=== PATIENT | male | born 1965 | race African-American/Black ===

== ENCOUNTER 2017-12-10 11:05 | Inpatient (IN) | payer SELFPAY ==
[2017-12-10] MEDS ORDERED: ALBUTEROL SULFATE 0.083% NEB 2.5 MG/3 ML AMPUL NEB ONE (11:30)
[2017-12-10] MEDS ORDERED: IPRATROPIUM/ALBUTEROL 0.5-2.5 MG/3 ML AMPUL NEB ONE (11:30)
[2017-12-10] MEDS ORDERED: METHYLPREDNISOLONE INJ 125 MG/2 ML SDV IV ONE (11:31)
--- NOTE | 2017-12-10 11:32 | ER Document Report ---
ED Medical Screen (RME) - General Chief Complaint: Breathing Difficulty Stated Complaint: DIFFICULTY BREATHING Time Seen by Provider: 12/10/17 11:23 Notes: 52-year-old male complains of shortness of breath and hemoptysis for the past 2 days. Patient has been traveling on a bus from [place] and had hernia surgery one week ago. No history of DVT or PE, no history of asthma or COPD. TRAVEL OUTSIDE OF THE [place] IN LAST 30 DAYS: No - Related Data Allergies/Adverse Reactions: meperidine [From Demerol] Allergy (Verified 12/10/17 11:06) morphine Allergy (Verified 12/10/17 11:06) Past Medical History - General Information source: Patient - Social History Cigarette use (# per day): Yes Review of Systems - Review of Systems Respiratory: See HPI Physical Exam - Vital signs Vitals: Temp Pulse Resp BP Pulse Ox 98.2 F 102 H 22 H 145/91 H 92 12/10/17 11:14 12/10/17 11:14 12/10/17 11:14 12/10/17 11:14 12/10/17 11:14 - Notes Notes: Appear short of breath, diffuse expiratory wheezing, appears uncomfortable, tachypneic. No cyanosis. Course - Vital Signs Vital signs: Temp Pulse Resp BP Pulse Ox 98.2 F 102 H 22 H 145/91 H 92 12/10/17 11:14 12/10/17 11:14 12/10/17 11:14 12/10/17 11:14 12/10/17 11:14
[2017-12-10 11:54] LABS: INTERNATIONAL RATION (INR) 1.07; PARTIAL THROMBOPLASTIN TIME 20.1 SEC (23.5-35.8); PROTHROMBIN TIME 14.5 SEC (11.4-15.4)
[2017-12-10] MEDS ORDERED: NORMAL SALINE 1000 ML 1,000 ML IV ONE (11:58)
[2017-12-10] MEDS ORDERED: CEFEPIME 2 GM/D5W RTU 2 GM/50 ML RTUPB IV SCH (11:58)
[2017-12-10] MEDS ORDERED: VANCOMYCIN HCL INJ 1000 MG VIAL IV ONE (11:59)
[2017-12-10] MEDS ORDERED: AZITHROMYCIN INJ 500 MG VIAL IV ONE (11:59)
--- NOTE | 2017-12-10 12:18 | ER Document Report ---
ED General - General Chief Complaint: Breathing Difficulty Stated Complaint: DIFFICULTY BREATHING Time Seen by Provider: 12/10/17 11:29 TRAVEL OUTSIDE OF THE [place] IN LAST 30 DAYS: No - HPI Notes: 52-year-old male who presents with dyspnea and hemoptysis. No history somewhat limited as the patient is in significant distress. He just within the last 24 hours arrived by bus from [place], has a history of hernia repair in the inguinal region approximately 2 weeks ago. He describes several days of increasingly severe dyspnea cough and hemoptysis, markedly worse today. Denies any personal or family history of venous thromboembolic disease, the use of anticoagulants. He is not been incarcerated in the last 6 months, no travel outside the country no history of TB. No unplanned weight loss. He has had some equivocal sweats and fever up, nothing measured. No associated chest pain. No other modifying factors, no other associated symptoms, no other provocative or palliative factors. Gradual onset. - Related Data Allergies/Adverse Reactions: meperidine [From Demerol] Allergy (Verified 12/10/17 11:06) morphine Allergy (Verified 12/10/17 11:06) Past Medical History - General Information source: Patient - Social History Smoking Status: Never Smoker Cigarette use (# per day): Yes Chew tobacco use (# tins/day): No Frequency of alcohol use: None Drug Abuse: None Family History: Reviewed & Not Pertinent Patient has suicidal ideation: No Patient has homicidal ideation: No - Medical History Notes: Includes recent hernia repair - Past Medical History Cardiac Medical History: Reports: Hx Hypertension Renal/ Medical History: Denies: Hx Peritoneal Dialysis Past Surgical History: Reports: Hx Abdominal Surgery - Hernia Repair Review of Systems - Review of Systems Notes: Review of systems as in the history of present illness, otherwise negative x 10 systems. Physical Exam - Vital signs Vitals: Temp Pulse Resp BP Pulse Ox 98.2 F 102 H 22 H 145/91 H 92 12/10/17 11:14 12/10/17 11:14 12/10/17 11:14 12/10/17 11:14 12/10/17 11:14 - Notes Notes: General: Well developed . Severe respiratory distress. HEENT: Normocephalic, atraumatic. Pupils equal round reactive to light. No JVD. Chest: No trauma. Respiratory: G for air exchange, and expiratory wheezing, some scattered rhonchi. Cardiac: Regular rhythm. No murmurs or gallops. Abdomen: Soft, benign. Nondistended. Nontender. Back: No asymmetry or gross abnormality. Motor: Grossly normal power and tone. Neurologic: Alert, nonfocal. Cranial nerves II-12 are intact. Sensation intact. Vascular: Well perfused. Normal peripheral pulses. Skin: No petechiae or purpura. Course - Re-evaluation Re-evalutation: 12/10/17 12:18 Ill-appearing male with the after mentioned symptoms, differential diagnosis includes malignancy/mass, pneumonia, pulmonary embolism. Plan to proceed with aggressive laboratory evaluation, labs, x-ray, likely CT imaging, reassess. 12/10/17 15:05 There were significant delays in a ability to require blood. Patient had substantial worsening during his ED course, was ultimately placed on BiPAP with transient improvement. However, he again experienced pronounced increased work of breathing. In light of this, he was intubated as described below. Patient's x-ray shows marked airspace disease predominantly on the right. Some mild cardiomegaly. Labs are reviewed and available labs show significant leukocytosis. Lactate is normal. Troponin is elevated somewhat, however, suspect this is secondary to increased work of breathing, multiorgan dysfunction syndrome and demand ischemia. Patient is covered with broad-spectrum antibiotics given his healthcare associated pneumonia risk. Rectal temp is pending. Patient is stabilized on the vent, is requiring high FiO2 and PEEP. Tube is secured at 24 but readjusted after was noted to be low. Good tube placement is noted on follow-up x-ray. CTA shows no evidence of pulmonary embolism. He is admitted to the hospital service for continued evaluation and management. Procedure note: This is an emergency procedure, informed consent is not obtained. Underwent rapid sequence intubation using etomidate and rocuronium. An 8-0 endotracheal tube was placed on the first attempt without difficulty. Placement verified with capnohraphy. Postprocedural x-ray shows the tube to be low, subsequently withdrawn and repeat x-ray shows good placement. No complications. 12 Lead ECG Analysis A 12 lead ECG is obtained and shows a sinus rhythm, normal QRS, normal QTC. There are nonspecific ST-T changes, no evidence of acute ischemic changes. Critical Care Note Greater than 35 minutes of critical care time was spent with this patient. This includes serial evaluation of the patient as well as labs, radiographs and EKGs; discussion of the case with consultants and admitting physician. This does not include time spent performing procedures. - Vital Signs Vital signs: Temp Pulse Resp BP Pulse Ox 100.2 F 102 H 14 136/102 H 97 12/10/17 13:51 12/10/17 11:14 12/10/17 13:51 12/10/17 13:51 12/10/17 14:53 - Laboratory Result Diagrams: 12/10/17 11:38 12/10/17 13:00 Laboratory results interpreted by me: 12/10/17 12/10/17 12/10/17 11:38 11:38 13:00 WBC 20.7 H Hgb 10.9 L Hct 34.4 L MCV 72 L MCH 22.6 L MCHC 31.5 L RDW 16.4 H Seg Neutrophils % 79.3 H Seg Neuts % (Manual) 83 H Band Neutrophils % 2 L Lymphocytes % 12.4 L Lymphocytes % (Manual) 12 L Monocytes % (Manual) 2 L Absolute Neutrophils 16.4 H Abs Neuts (Manual) 16.4 H Absolute Basophils 0.3 H APTT 20.1 L Glucose 134 H Calcium 8.3 L Discharge - Discharge Clinical Impression: Respiratory failure Qualifiers: Chronicity: acute Respiratory failure complication: hypoxia Qualified Code(s): J96.01 - Acute respiratory failure with hypoxia Condition: Critical Disposition: ADMITTED INPATIENT Admitting Provider: Hospitalist Unit Admitted: ICU
[2017-12-10 12:47] LABS: ABSOLUTE LYMPHOCYTES# (MANUAL) 2.3 10^3/uL (0.5-4.7); ABSOLUTE MONOCYTES # (MANUAL) 0.4 10^3/uL (0.1-1.4); ABSOLUTE NEUTROPHILS# (MANUAL) 16.4 10^3/uL (1.7-8.2); BAND NEUTROPHILS % (MANUAL) 2 % (3-5); BASOPHILS % (MANUAL) 1 % (0-2); EOSINOPHILS % (MANUAL) 0 % (0-6); HYPERSEGMENTED NEUTROPHILS PRESENT; LYMPHOCYTES % (MANUAL) 12 % (13-45); MONOCYTES % (MANUAL) 2 % (3-13); NUCLEATED RED BLOOD CELLS 2 /100 WBC (0); PLATELET CLUMPS PRESENT; PLATELET COMMENT ADEQUATE; PLATELET LARGE PRESENT; SEGMENTED NEUTROPHILS % (MAN) 83 % (42-78); TOTAL CELLS COUNTED 100; TOXIC VACUOLATION PRESENT
[2017-12-10 12:51] LABS: ANISOCYTOSIS 1+; BURR CELLS SLIGHT; HYPOCHROMASIA 1+; POIKILOCYTOSIS SLIGHT; POLYCHROMASIA SLIGHT; SCHISTOCYTES SLIGHT
--- NOTE | 2017-12-10 12:54 | RADIOLOGY REPORT (SQ) ---
EXAM DESCRIPTION: CHEST SINGLE VIEW COMPLETED DATE/TIME: 12/10/2017 11:52 am REASON FOR STUDY: DYSPNEA AND HEMOP COMPARISON: None. EXAM PARAMETERS: NUMBER OF VIEWS: One view. TECHNIQUE: Single frontal radiographic view of the chest acquired. RADIATION DOSE: NA LIMITATIONS: None. FINDINGS: LUNGS AND PLEURA: Bilateral perihilar airspace type infiltrates, right greater than left. The findings are compatible with pulmonary edema, pulmonary hemorrhage, or pneumonia. MEDIASTINUM AND HILAR STRUCTURES: No masses. Contour normal. HEART AND VASCULAR STRUCTURES: Cardiomegaly. BONES: Degenerative changes AC joints. . HARDWARE: None in the chest. OTHER: Chest leads in place. IMPRESSION: Cardiomegaly with bilateral perihilar airspace type infiltrates. Pulmonary edema, pneum onia or pulmonary hemorrhage are considerations. TECHNICAL DOCUMENTATION: JOB ID: [id number] 2010 [employer]- All Rights Reserved Reading location - IP/workstation name: [email or web address]
[2017-12-10 13:02] LABS: ABSOLUTE BASOPHILS # (AUTO) 0.3 10^3/uL (0.0-0.2); ABSOLUTE EOSINOPHILS # (AUTO) 0.1 10^3/uL (0.0-0.6); ABSOLUTE LYMPHOCYTES (AUTO) 2.6 10^3/uL (0.5-4.7); ABSOLUTE MONOCYTES (AUTO) 1.3 10^3/uL (0.1-1.4); ABSOLUTE NEUT (AUTO) 16.4 10^3/uL (1.7-8.2); BASOPHILS % (AUTO) 1.4 % (0-2); EOSINOPHILS % (AUTO) 0.5 % (0-6); HEMATOCRIT 34.4 % (37.9-51.0); HEMOGLOBIN 10.9 g/dL (13.5-17.0); LYMPHOCYTES % (AUTO) 12.4 % (13-45); MEAN CORPUSCULAR HEMOGLOBIN 22.6 pg (27.0-33.4); MEAN CORPUSCULAR HGB CONC 31.5 g/dL (32.0-36.0); MEAN CORPUSCULAR VOLUME 72 fl (80-97); MONOCYTES % (AUTO) 6.4 % (3-13); PLATELET COUNT 294 10^3/uL (150-450); RED CELL DISTRIBUTION WIDTH 16.4 % (11.5-14.0); SEGMENTED NEUTROPHILS % (AUTO) 79.3 % (42-78); TOTAL CELLS COUNTED % (AUTO) 100 %; WHITE BLOOD COUNT 20.7 10^3/uL (4.0-10.5)
[2017-12-10] MEDS ORDERED: ETOMIDATE INJ/PF 20 MG/10 ML SDV IV ONE ×2 (13:07→13:08)
[2017-12-10] MEDS ORDERED: PROPOFOL 1,000 MG/100 ML INFUS..BTL IV PRN (13:08)
[2017-12-10] MEDS ORDERED: PROPOFOL 1,000 MG/100 ML INFUS..BTL IV ONE (13:08)
[2017-12-10] MEDS ORDERED: ROCURONIUM BROMIDE INJ 50 MG/5 ML VIAL IV ONE ×2 (13:08→15:09)
[2017-12-10] MEDS ORDERED: RINGERS SOLUTION,LACTATED 1,000 ML IV PRN (13:26)
[2017-12-10 13:31] LABS: ANION GAP 11 (5-19); BLOOD UREA NITROGEN 13 mg/dL (7-20); CALCIUM 8.3 mg/dL (8.4-10.2); CARBON DIOXIDE 23 mmol/L (22-30); CHLORIDE 106 mmol/L (98-107); GLUCOSE 134 mg/dL (75-110); POTASSIUM 3.7 mmol/L (3.6-5.0); SODIUM 140.3 mmol/L (137-145)
--- NOTE | 2017-12-10 14:47 | RADIOLOGY REPORT (SQ) ---
EXAM DESCRIPTION: CHEST SINGLE VIEW COMPLETED DATE/TIME: 12/10/2017 1:56 pm REASON FOR STUDY: Post ROMULO COMPARISON: None. EXAM PARAMETERS: NUMBER OF VIEWS: One view. TECHNIQUE: Single frontal radiographic view of the chest acquired. RADIATION DOSE: NA LIMITATIONS: None. FINDINGS: LUNGS AND PLEURA: Bilateral pulmonary perihilarairspace infiltrates, right greater left no lupe. MEDIASTINUM AND HILAR STRUCTURES: No masses. Contour normal. HEART AND VASCULAR STRUCTURES: The heart is borderline enlarged. BONES: No acute findings. HARDWARE: Endotracheal tube above the sandra. NG tube overlying stomach. OTHER: No other significant finding. IMPRESSION: Cardiomegaly. No significant change in perihilar infiltrates right greater than left. ET tube above sandra. NG tube overlying stomach. TECHNICAL DOCUMENTATION: JOB ID: [id number] [id number] 2010 [employer] All Rights Reserved Reading location - IP/workstation name: [email or web address]
--- NOTE | 2017-12-10 15:05 | RADIOLOGY REPORT (SQ) ---
EXAM DESCRIPTION: CTA CHEST COMPLETED DATE/TIME: 12/10/2017 2:33 pm REASON FOR STUDY: hemoptysis, recent travel COMPARISON: None. TECHNIQUE: CT scan of the chest performed using helical scanning technique with dynamic intravenous contrast injection. Images reviewed with lung, soft tissue and bone windows. Reconstructed coronal and sagittal MPR images reviewed. Additional 3 dimensional post-processing performed to develop Maximal Intensity Projection images (MA P). All images stored on PACS. All CT scanners at this facility use dose modulation, iterative reconstruction, and/or weight based d osing when appropriate to reduce radiation dose to as low as reasonably achievable (ALARA). [facility]: Dose Right [facility]: CareDose [facility]: Dose Right [facility]: Teradose 4D [facility]: [employer] CONTRAST TYPE AND DOSE: contrast/concentration: Isovue 350.00 mg/ml; Total Contrast Delivered: 149.0 ml; Total Saline Delivered: 182.0 ml Contrast bolus optimized for the pulmonary arteries. Not diagnostic for the aorta. RENAL FUNCTION: Creatinine: 0.55 RADIATION DOSE: CT Rad equipment meets quality standard of care and radiation dose reduction techniq ues were employed. CTDIvol: 8.3 - 66.1 mGy. DLP: 1873 mGy-cm. . LIMITATIONS: None. FINDINGS: LUNGS AND PLEURA: Prominent airspace type consolidation noted in the perihilar regions ,gr eatest on the right. Small effusions noted right greater than left. Bullous disease in lung apices. AORTA AND GREAT VESSELS: No aneurysm. Contrast bolus not optimized for the aorta. HEART: No pericardial effusion. No significant coronary artery calcifications. The heart is borderli ne enlarged. PULMONARY ARTERIES: No emboli visualized in the main pulmonary arteries or the segmental branches. HILAR AND MEDIASTINAL STRUCTURES: Small nonenlarged right paratracheal and pretracheal nodes. HARDWARE: Endotracheal tube above sandra. Feeding tube passing to stomach. UPPER ABDOMEN: Cortical cyst upper pole left kidney. Tiny cortical cyst lower pole right kidney. NG tube within stomach. THYROID AND OTHER SOFT TISSUES: No masses. No adenopathy. BONES: No acute or significant finding. 3D MIPS: Confirm above findings. OTHER: Soft tissue attenuation suggests soft tissue edema. IMPRESSION: 1.There are diffuse bilateral pulmonary airspace infiltrates and perihilar regions. Sma ll effusions bilaterally. The findings can be seen with pulmonary edema, pneumonia, ARDS. Findings consistent with soft tissue anasarca. 2. Cortical cysts of the kidneys . COMMENT: Quality ID # [id number]: Final reports with documentation of one or more dose reduction techniques (e.g., Automated exposure control, adjustment of the mA and/or kV according to patient size, use of iterative reconstruction technique) TECHNICAL DOCUMENTATION: JOB ID: [id number] SC-[id number] 2010 [employer]- All Rights Reserved Reading location - IP/workstation name: [email or web address]
[2017-12-10 15:08] LABS: ARTERIAL BLOOD BASE EXCESS -3.5 mmol/L; ARTERIAL BLOOD FIO2 80%; ARTERIAL BLOOD HCO3 24.5 mmol/L (20-26); ARTERIAL BLOOD O2 SATURATION 95.5 % (94-98); ARTERIAL BLOOD PCO2 59.8 mmHg (35-45); ARTERIAL BLOOD PH 7.23 (7.35-7.45); ARTERIAL BLOOD PO2 92.3 mmHg (80-100); ARTERIAL BLOOD TOTAL CO2 26.4 mmol/L (23-27)
[2017-12-10] MEDS ORDERED: VANCOMYCIN HCL 0 MG in DEXTROSE 5%-WATER 250 ML IV NR (15:15)
--- NOTE | 2017-12-10 15:37 | PDOC H&P ---
History of Present Illness Admission Date/PCP: 12/10/17 14:06 Patient complains of: Shortness of breath History of Present Illness: SUKUMAR PAZ is a 52 year old male who is currently intubated and sedated in the emergency room and no family at the bedside. All the history was obtained from the medical records and the ER personnel. Apparently he came here on the bus to visit family. He is from [place]. Apparently he developed shortness of breath and came to the emergency room for evaluation. The history that I know of and has history of smoking as he had a cigarette box on him and history of hypertension documented emergency room physician note. Past Medical History Cardiac Medical History: Reports: Hypertension Past Surgical History Past Surgical History: Reports: Herniorrhaphy Social History Smoking Status: Current Every Day Smoker Family History Family History: Other - could not obtained Parental Family History Reviewed: No - Patient is intubated Children Family History Reviewed: No Sibling(s) Family History Reviewed.: No Medication/Allergy Home Medications: Unobtainable [Unobtainable] 12/10/17 Allergies/Adverse Reactions: meperidine [From Demerol] Allergy (Verified 12/10/17 11:06) morphine Allergy (Verified 12/10/17 11:06) Review of Systems ROS unobtainable: Due to endotracheal tube Physical Exam Vital Signs: Temp Pulse Resp BP Pulse Ox 100.2 F 102 H 14 136/102 H 97 12/10/17 13:51 12/10/17 11:14 12/10/17 13:51 12/10/17 13:51 12/10/17 14:53 General appearance: PRESENT: other - Sedated intubated Head exam: PRESENT: atraumatic, normocephalic Eye exam: PRESENT: PERRLA Ear exam: ABSENT: bleeding, drainage Neck exam: ABSENT: meningismus, thyromegaly, tracheal deviation Respiratory exam: PRESENT: rhonchi, other - Intubated Cardiovascular exam: PRESENT: tachycardia Pulses: PRESENT: normal dorsalis pedis pul GI/Abdominal exam: PRESENT: normal bowel sounds, soft. ABSENT: distended, guarding, mass, organolmegaly, rebound, tenderness Extremities exam: PRESENT: full ROM. ABSENT: calf tenderness, clubbing, pedal edema Neurological exam: PRESENT: other - Sedated Results Laboratory Results: 12/10/17 14:45 Carbonic Acid 1.80 H HCO3/H2CO3 Ratio 13:1 ABG pH 7.23 L ABG pCO2 59.8 H ABG pO2 92.3 ABG HCO3 24.5 ABG O2 Saturation 95.5 ABG Base Excess -3.5 FiO2 80% Impressions: Chest/Abdomen CTA 12/10/17 11:31 IMPRESSION: 1.There are diffuse bilateral pulmonary airspace infiltrates and perihilar regions. Small effusions bilaterally. The findings can be seen with pulmonary edema, pneumonia, ARDS. Findings consistent with soft tissue anasarca. 2. Cortical cysts of the kidneys . Chest X-Ray 12/10/17 13:27 IMPRESSION: Cardiomegaly. No significant change in perihilar infiltrates right greater than left. ET tube above sandra. NG tube overlying stomach. Assessment & Plan - Diagnosis (1) Respiratory failure Qualifiers: Chronicity: acute Respiratory failure complication: hypoxia Qualified Code(s): J96.01 - Acute respiratory failure with hypoxia Is this a current diagnosis for this admission?: Yes Plan: This is most likely due to severe large pneumonia Patient's intubated and on mechanical ventilation Titrate the vent to maximize ventilation and oxygenation Wean as tolerated (2) Pneumonia Is this a current diagnosis for this admission?: Yes Plan: Considering that the patient had hernia repair 2 weeks ago, we will be aggressive on antibiotics We will start on IV vancomycin, cefepime and Levaquin Follow blood cultures and sputum cultures (3) Hypertension Is this a current diagnosis for this admission?: Yes Plan: We will continue to monitor the patient's blood pressure and will intervene if needed (4) Smoking Is this a current diagnosis for this admission?: Yes - Time Critical Time spent with patient: 35 or more minutes
[2017-12-10] MEDS: PROPOFOL 1,000 MG/100 ML INFUS..BTL IV PRN ×3 (15:46→22:39)
[2017-12-10] MEDS: ENOXAPARIN SODIUM INJ 40 MG/0.4 ML DISP.SYRIN SUBCUT SCH (16:36)
[2017-12-10] MEDS: NORMAL SALINE 1000 ML 1,000 ML IV PRN (16:36)
[2017-12-10] MEDS: LEVOFLOXACIN 750 MG/D5W RTU 750 MG/150 ML RTUPB IV SCH (17:17)
[2017-12-10 17:22] LABS: ARTERIAL BLOOD BASE EXCESS -0.1 mmol/L; ARTERIAL BLOOD FIO2 75%; ARTERIAL BLOOD H2CO3 1.29 mmol/L (1.05-1.35); ARTERIAL BLOOD PCO2 42.7 mmHg (35-45); ARTERIAL BLOOD PH 7.39 (7.35-7.45); ARTERIAL BLOOD PO2 112.5 mmHg (80-100); ARTERIAL BLOOD TOTAL CO2 26.3 mmol/L (23-27)
[2017-12-10] MEDS ORDERED: LEVALBUTEROL HCL NEB 1.25 MG/3 ML AMPUL NEB PRN (17:58)
[2017-12-10 18:51] LABS: URINE AMPHETAMINES SCREEN NEGATIVE; URINE BARBITURATES SCREEN NEGATIVE; URINE BENZODIAZEPINES SCREEN NEGATIVE; URINE COCAINE SCREEN NEGATIVE; URINE MARIJUANA (THC) SCREEN NEGATIVE; URINE METHADONE SCREEN NEGATIVE; URINE PHENCYCLIDINE SCREEN NEGATIVE
[2017-12-10] MEDS ORDERED: MIDAZOLAM HCL 50 MG/100 ML RTUINJ IV PRN (19:09)
[2017-12-10] MEDS: IPRATROPIUM/ALBUTEROL 0.5-2.5 MG/3 ML AMPUL NEB SCH (20:24)
[2017-12-10] MEDS: FAMOTIDINE INJ/PF 20 MG/2 ML SDV IV SCH (22:07)
[2017-12-10] MEDS: VANCOMYCIN HCL 1,500 MG in DEXTROSE 5%-WATER 250 ML IV SCH (22:07)
[2017-12-10] MEDS: METHYLPREDNISOLONE INJ 40 MG/1 ML SDV IV SCH (22:07)
[2017-12-10] MEDS: CEFEPIME 2 GM/D5W RTU 2 GM/50 ML RTUPB IV SCH (22:16)
--- NOTE | 2017-12-10 23:41 | EKG REPORT ---
SEVERITY:- ABNORMAL ECG - SINUS TACHYCARDIA PROBABLE LEFT ATRIAL ABNORMALITY PROBABLE LVH WITH SECONDARY REPOL ABNRM : Confirmed by: Michela Kwon 10-Dec-2017 23:40:19
[2017-12-11] MEDS: IPRATROPIUM/ALBUTEROL 0.5-2.5 MG/3 ML AMPUL NEB SCH ×5 (01:29→20:09)
[2017-12-11] MEDS: PROPOFOL 1,000 MG/100 ML INFUS..BTL IV PRN ×3 (02:59→08:24)
[2017-12-11] MEDS: VANCOMYCIN HCL 1,500 MG in DEXTROSE 5%-WATER 250 ML IV SCH ×3 (05:38→21:42)
[2017-12-11 06:01] LABS: ARTERIAL BLOOD BASE EXCESS 1.7 mmol/L; ARTERIAL BLOOD H2CO3 1.12 mmol/L (1.05-1.35); ARTERIAL BLOOD HCO3 25.6 mmol/L (20-26); ARTERIAL BLOOD O2 SATURATION 97.2 % (94-98); ARTERIAL BLOOD PCO2 37.3 mmHg (35-45); ARTERIAL BLOOD PH 7.46 (7.35-7.45); ARTERIAL BLOOD PO2 89.4 mmHg (80-100); ARTERIAL BLOOD TOTAL CO2 26.8 mmol/L (23-27)
[2017-12-11 06:04] LABS: ARTERIAL BLOOD FIO2 50%
[2017-12-11 06:13] LABS: ABSOLUTE MONOCYTES (AUTO) 0.4 10^3/uL (0.1-1.4); ABSOLUTE NEUT (AUTO) 12.9 10^3/uL (1.7-8.2); BASOPHILS % (AUTO) 0.3 % (0-2); HEMATOCRIT 27.5 % (37.9-51.0); MEAN CORPUSCULAR HEMOGLOBIN 22.5 pg (27.0-33.4); MEAN CORPUSCULAR VOLUME 70 fl (80-97); MONOCYTES % (AUTO) 2.5 % (3-13); PLATELET COUNT 216 10^3/uL (150-450); RED CELL DISTRIBUTION WIDTH 16.2 % (11.5-14.0); SEGMENTED NEUTROPHILS % (AUTO) 90.2 % (42-78); TOTAL CELLS COUNTED % (AUTO) 100 %; WHITE BLOOD COUNT 14.3 10^3/uL (4.0-10.5)
[2017-12-11 06:20] LABS: HEMOGLOBIN 8.8 g/dL (13.5-17.0)
[2017-12-11 06:27] LABS: ALANINE AMINOTRANSFERASE 51 U/L (21-72); ALBUMIN 2.5 g/dL (3.5-5.0); ALKALINE PHOSPHATASE 237 U/L (38-126); ANION GAP 9 (5-19); ASPARTATE AMINO TRANSFERASE 32 U/L (17-59); BILIRUBIN,DIRECT 0.3 mg/dL (0.0-0.4); BILIRUBIN,TOTAL 0.4 mg/dL (0.2-1.3); BLOOD UREA NITROGEN 12 mg/dL (7-20); CALCIUM 8.6 mg/dL (8.4-10.2); CARBON DIOXIDE 24 mmol/L (22-30); CHLORIDE 110 mmol/L (98-107); GLUCOSE 124 mg/dL (75-110); POTASSIUM 4.3 mmol/L (3.6-5.0); SODIUM 143.1 mmol/L (137-145); TOTAL PROTEIN 5.5 g/dL (6.3-8.2)
--- NOTE | 2017-12-11 07:15 | RADIOLOGY REPORT (SQ) ---
EXAM DESCRIPTION: CHEST SINGLE VIEW COMPLETED DATE/TIME: 12/11/2017 6:56 am REASON FOR STUDY: pneumonia COMPARISON: CT angio chest 12/10/2017 AP chest 12/10/2017 EXAM PARAMETERS: NUMBER OF VIEWS: One view. TECHNIQUE: Single frontal radiographic view of the chest acquired. RADIATION DOSE: NA LIMITATIONS: None. FINDINGS: LUNGS AND PLEURA: Partial clearing of the dense consolidation in the right lung and left p erihilar region compared to previous studies. No pneumothorax. No pleural effusions. MEDIASTINUM AND HILAR STRUCTURES: No masses. Contour normal. HEART AND VASCULAR STRUCTURES: Stable cardiomegaly BONES: No acute findings. HARDWARE: Endotracheal tube tip midtrachea. Nasogastric tube tip and side port in the stomach OTHER: No other significant finding. IMPRESSION: Partial clearing of the dense airspace disease in the right lung and left perihilar bi on compared to previous studies TECHNICAL DOCUMENTATION: JOB ID: [id number] [employer]- All Rights Reserved Reading location - IP/workstation name: [email or web address]
[2017-12-11] MEDS: IPRATROPIUM/ALBUTEROL 0.5-2.5 MG/3 ML AMPUL NEB PRN ×2 (07:37→07:38)
[2017-12-11] MEDS: NORMAL SALINE 1000 ML 1,000 ML IV PRN ×2 (08:26→23:08)
[2017-12-11] MEDS: ENOXAPARIN SODIUM INJ 40 MG/0.4 ML DISP.SYRIN SUBCUT SCH (09:53)
[2017-12-11] MEDS: METHYLPREDNISOLONE INJ 40 MG/1 ML SDV IV SCH ×2 (09:53→21:42)
[2017-12-11] MEDS: FAMOTIDINE INJ/PF 20 MG/2 ML SDV IV SCH ×2 (09:53→21:46)
[2017-12-11] MEDS: CEFEPIME 2 GM/D5W RTU 2 GM/50 ML RTUPB IV SCH ×2 (09:53→21:41)
--- NOTE | 2017-12-11 11:21 | PDOC CONSULTATION ---
Consultation Consult Date: 12/10/17 Attending physician:: TATE FLEMING Consult reason:: acute resp failure/pna History of Present Illness Admission Date/PCP: 12/10/17 14:06 History of Present Illness: SUKUMAR PAZ is a 52 year old male,Currently intubated in the ICU recently came to town on a bus trip from [place] became increasingly short of breath and his brother brought him to the emergency room he was deemed to be hypoxic and have a multi-lobar infiltrate. Past Medical History Cardiac Medical History: Reports: Hypertension Past Surgical History Past Surgical History: Reports: Herniorrhaphy Social History Information Source: [facility] Records Smoking Status: Current Every Day Smoker Drugs: Cocaine Family History Family History: Other - could not obtained Parental Family History Reviewed: No Children Family History Reviewed: No Sibling(s) Family History Reviewed.: No Medication/Allergy Home Medications: Unobtainable [Unobtainable] 12/10/17 Allergies/Adverse Reactions: meperidine [From Demerol] Allergy (Verified 12/10/17 11:06) morphine Allergy (Verified 12/10/17 11:06) Review of Systems ROS unobtainable: Due to endotracheal tube Physical Exam Vital Signs: Temp Pulse Resp BP Pulse Ox 97.7 F 82 18 104/72 100 12/11/17 07:58 12/11/17 07:58 12/11/17 07:58 12/11/17 07:58 12/11/17 07:58 Intake & Output 12/10/17 12/11/17 12/12/17 06:59 06:59 06:59 Intake Total 2810 292 Output Total 2600 100 Balance 210 192 Weight 81.4 kg General appearance: PRESENT: no acute distress, disheveled, well-developed, well -nourished Head exam: PRESENT: atraumatic, normocephalic Eye exam: PRESENT: conjunctiva pale, EOMI. ABSENT: nystagmus, periorbital swelling, scleral icterus Mouth exam: PRESENT: dry mucosa, neck supple, tongue midline, other - ET tube in place Neck exam: ABSENT: carotid bruit, JVD, lymphadenopathy, thyromegaly, tracheal deviation, tracheostomy Respiratory exam: PRESENT: crackles, decreased breath sounds, prolonged expiratory phas, rhonchi. ABSENT: retraction, unlabored Cardiovascular exam: PRESENT: RRR, +S1, +S2 Pulses: PRESENT: normal radial pulses GI/Abdominal exam: PRESENT: normal bowel sounds, soft. ABSENT: distended, guarding, mass, organolmegaly, rebound, tenderness Gentrourinary exam: PRESENT: indwelling catheter Extremities exam: ABSENT: clubbing, joint swelling, pedal edema Musculoskeletal exam: ABSENT: ambulatory, deformity, dislocation Neurological exam: ABSENT: awake Skin exam: PRESENT: dry, warm Results Laboratory Results: 12/11/17 05:50 12/11/17 05:50 12/10/17 12/10/17 12/11/17 14:45 17:05 05:45 WBC RBC Hgb Hct MCV MCH MCHC RDW Plt Count Seg Neutrophils % Lymphocytes % Monocytes % Eosinophils % Basophils % Absolute Neutrophils Absolute Lymphocytes Absolute Monocytes Absolute Eosinophils Absolute Basophils Carbonic Acid 1.80 H 1.29 1.12 HCO3/H2CO3 Ratio 13:1 19:1 22:1 ABG pH 7.23 L 7.39 7.46 H ABG pCO2 59.8 H 42.7 37.3 ABG pO2 92.3 112.5 H 89.4 ABG HCO3 24.5 25.0 25.6 ABG O2 Saturation 95.5 98.0 97.2 ABG Base Excess -3.5 -0.1 1.7 FiO2 80% 75% 50% Sodium Potassium Chloride Carbon Dioxide Anion Gap BUN Creatinine Est GFR ( Amer) Est GFR (Non-Af Amer) Glucose Calcium Total Bilirubin AST ALT Alkaline Phosphatase Total Protein Albumin 12/11/17 12/11/17 05:50 05:50 WBC 14.3 H RBC 3.90 L Hgb 8.8 L D Hct 27.5 L MCV 70 L MCH 22.5 L MCHC 32.0 RDW 16.2 H Plt Count 216 Seg Neutrophils % 90.2 H Lymphocytes % 7.0 L Monocytes % 2.5 L Eosinophils % 0.0 Basophils % 0.3 Absolute Neutrophils 12.9 H Absolute Lymphocytes 1.0 Absolute Monocytes 0.4 Absolute Eosinophils 0.0 Absolute Basophils 0.0 Carbonic Acid HCO3/H2CO3 Ratio ABG pH ABG pCO2 ABG pO2 ABG HCO3 ABG O2 Saturation ABG Base Excess FiO2 Sodium 143.1 Potassium 4.3 Chloride 110 H Carbon Dioxide 24 Anion Gap 9 BUN 12 Creatinine 0.57 Est GFR ( Amer) > 60 Est GFR (Non-Af Amer) > 60 Glucose 124 H Calcium 8.6 Total Bilirubin 0.4 AST 32 ALT 51 Alkaline Phosphatase 237 H Total Protein 5.5 L Albumin 2.5 L Impressions: Chest/Abdomen CTA 12/10/17 11:31 IMPRESSION: 1.There are diffuse bilateral pulmonary airspace infiltrates and perihilar regions. Small effusions bilaterally. The findings can be seen with pulmonary edema, pneumonia, ARDS. Findings consistent with soft tissue anasarca. 2. Cortical cysts of the kidneys . Chest X-Ray 12/11/17 05:00 IMPRESSION: Partial clearing of the dense airspace disease in the right lung and left perihilar region compared to previous studies Assessment & Plan - Diagnosis (1) Hypertension Is this a current diagnosis for this admission?: Yes Plan: Has been slightly elevated but appears to be stable at this time (2) Pneumonia Qualifiers: Laterality: bilateral Is this a current diagnosis for this admission?: Yes Plan: Suspect aspiration etiology not completely clear (3) Respiratory failure Qualifiers: Chronicity: acute Respiratory failure complication: hypoxia Qualified Code(s): J96.01 - Acute respiratory failure with hypoxia Is this a current diagnosis for this admission?: Yes (4) Smoking Is this a current diagnosis for this admission?: Yes - Time Total Critical Time (Minutes): 55
--- NOTE | 2017-12-11 14:59 | PDOC PROGRESS REPORT ---
Subjective Progress Note for:: 12/11/17 Subjective:: Patient is being weaned off the vent During the time of my interview he was off sedation on pressure support He could not communicate well with me because he is still intubated Reason For Visit: PNEUMONIA Physical Exam Vital Signs: Temp Pulse Resp BP Pulse Ox 98.6 F 94 27 H 133/91 H 99 12/11/17 14:00 12/11/17 14:06 12/11/17 14:06 12/11/17 14:06 12/11/17 14:06 Intake & Output 12/10/17 12/11/17 12/12/17 06:59 06:59 06:59 Intake Total 2860 351 Output Total 2600 375 Balance 260 -24 Weight 179 lb 7.3 oz Exam: Intubated and sedated Head exam: PRESENT: atraumatic, normocephalic Eye exam: PRESENT: conjunctiva pink, EOMI, PERRLA. ABSENT: scleral icterus Ear exam: PRESENT: normal external ear exam Neck exam: ABSENT: carotid bruit, JVD, lymphadenopathy, thyromegaly Respiratory exam: PRESENT: rhonchi, other - Intubated Cardiovascular exam: PRESENT: RRR. ABSENT: diastolic murmur, rubs, systolic murmur Pulses: PRESENT: normal dorsalis pedis pul GI/Abdominal exam: PRESENT: normal bowel sounds, soft. ABSENT: distended, guarding, mass, organolmegaly, rebound, tenderness Neurological exam: PRESENT: other - Moves all extremities responds to commands Results Laboratory Results: 12/11/17 05:50 12/11/17 05:50 12/10/17 12/10/17 12/11/17 14:45 17:05 05:45 WBC RBC Hgb Hct MCV MCH MCHC RDW Plt Count Seg Neutrophils % Lymphocytes % Monocytes % Eosinophils % Basophils % Absolute Neutrophils Absolute Lymphocytes Absolute Monocytes Absolute Eosinophils Absolute Basophils Carbonic Acid 1.80 H 1.29 1.12 HCO3/H2CO3 Ratio 13:1 19:1 22:1 ABG pH 7.23 L 7.39 7.46 H ABG pCO2 59.8 H 42.7 37.3 ABG pO2 92.3 112.5 H 89.4 ABG HCO3 24.5 25.0 25.6 ABG O2 Saturation 95.5 98.0 97.2 ABG Base Excess -3.5 -0.1 1.7 FiO2 80% 75% 50% Sodium Potassium Chloride Carbon Dioxide Anion Gap BUN Creatinine Est GFR ( Amer) Est GFR (Non-Af Amer) Glucose Calcium Total Bilirubin AST ALT Alkaline Phosphatase Total Protein Albumin 12/11/17 12/11/17 05:50 05:50 WBC 14.3 H RBC 3.90 L Hgb 8.8 L D Hct 27.5 L MCV 70 L MCH 22.5 L MCHC 32.0 RDW 16.2 H Plt Count 216 Seg Neutrophils % 90.2 H Lymphocytes % 7.0 L Monocytes % 2.5 L Eosinophils % 0.0 Basophils % 0.3 Absolute Neutrophils 12.9 H Absolute Lymphocytes 1.0 Absolute Monocytes 0.4 Absolute Eosinophils 0.0 Absolute Basophils 0.0 Carbonic Acid HCO3/H2CO3 Ratio ABG pH ABG pCO2 ABG pO2 ABG HCO3 ABG O2 Saturation ABG Base Excess FiO2 Sodium 143.1 Potassium 4.3 Chloride 110 H Carbon Dioxide 24 Anion Gap 9 BUN 12 Creatinine 0.57 Est GFR ( Amer) > 60 Est GFR (Non-Af Amer) > 60 Glucose 124 H Calcium 8.6 Total Bilirubin 0.4 AST 32 ALT 51 Alkaline Phosphatase 237 H Total Protein 5.5 L Albumin 2.5 L Impressions: Chest/Abdomen CTA 12/10/17 11:31 IMPRESSION: 1.There are diffuse bilateral pulmonary airspace infiltrates and perihilar regions. Small effusions bilaterally. The findings can be seen with pulmonary edema, pneumonia, ARDS. Findings consistent with soft tissue anasarca. 2. Cortical cysts of the kidneys . Chest X-Ray 12/11/17 05:00 IMPRESSION: Partial clearing of the dense airspace disease in the right lung and left perihilar region compared to previous studies Assessment & Plan - Diagnosis (1) Respiratory failure Qualifiers: Chronicity: acute Respiratory failure complication: hypoxia Qualified Code(s): J96.01 - Acute respiratory failure with hypoxia Is this a current diagnosis for this admission?: Yes Plan: This is most likely due to large pneumonia Patient's intubated and on mechanical ventilation Wean as tolerated (2) Pneumonia Qualifiers: Laterality: bilateral Is this a current diagnosis for this admission?: Yes Plan: Considering that the patient had hernia repair 2 weeks ago, we will be aggressive on antibiotics Continue IV vancomycin, cefepime and Levaquin Follow blood cultures and sputum cultures (3) Hypertension Is this a current diagnosis for this admission?: Yes Plan: We will continue to monitor the patient's blood pressure and will intervene if needed (4) Smoking Is this a current diagnosis for this admission?: Yes
[2017-12-11 15:45] LABS: ARTERIAL BLOOD BASE EXCESS 1.5 mmol/L; ARTERIAL BLOOD HCO3 25.1 mmol/L (20-26); ARTERIAL BLOOD O2 SATURATION 97.2 % (94-98); ARTERIAL BLOOD PCO2 36.4 mmHg (35-45); ARTERIAL BLOOD PH 7.46 (7.35-7.45); ARTERIAL BLOOD PO2 88.7 mmHg (80-100); ARTERIAL BLOOD TOTAL CO2 26.3 mmol/L (23-27)
[2017-12-11 15:46] LABS: ARTERIAL BLOOD FIO2 30%
[2017-12-11] MEDS: LEVOFLOXACIN 750 MG/D5W RTU 750 MG/150 ML RTUPB IV SCH (17:32)
--- NOTE | 2017-12-11 19:31 | XCELERA REPORT ---
[address] [address] Transthoracic Echocardiogram Report Name: SUKUMAR PAZ Age: 52 yrs Gender: Male : 1965 Patient Status: Inpatient Patient Location: ICU^609^A Study Date: 12/11/2017 09:50 AM Procedure: A complete two-dimensional transthoracic echocardiogram was performed (2D, M-mode, spectral and color flow Doppler). The study was technically adequate with some images being suboptimal in quality. Reason For Study: sob Ordering Physician: TATE FLEMING Performed By: Natali Bass Interpretation Summary Left ventricular systolic function is moderate to severely reduced. Doppler measurements suggest pseudonormalized left ventricular relaxation, which is associated with grade II/IV or mild to moderate diastolic dysfunction The left ventricle is grossly normal size. There is normal left ventricular wall thickness. There is moderate to severe global hypokinesis of the left ventricle. The right ventricular systolic function is normal. The right ventricle is grossly normal size. LV EF is 35-40% The left atrium is moderately dilated. The right atrium is normal in size There is a mild to moderate amount of mitral regurgitation There is no mitral valve stenosis. There is no aortic valve stenosis No aortic regurgitation is present. There is a mild amount of tricuspid regurgitation There is moderate pulmonary hypertension by echo Right ventricular systolic pressure is estimated to be elevated at 50- 60mmHg. The aortic root is not well visualized but is probably normal size. The inferior vena cava was not well visualized Minimal pericardial effusion. MMode/2D Measurements & Calculations RVDd: 3.1 cm LVIDd: 7.5 cm FS: 29.0 % Ao root diam: IVSd: 0.70 cm LVIDs: 5.3 cm EDV(Teich): 3.0 cm LVPWd: 0.78 cm 300.7 ml Ao root area: ESV(Teich): 7.2 cm2 138.2 ml EF(Teich): 54.1 % LVOT diam: EDV(MOD-sp4): SV(MOD-sp4): 1.7 cm 155.9 ml 46.4 ml LVOT area: ESV(MOD-sp4): 2.2 cm2 109.4 ml EF(MOD-sp4): 29.8 % Doppler Measurements & Calculations MV E max kasandra: MV dec slope: Ao V2 max: LV V1 max P.8 cm/sec 872.3 cm/sec2 152.1 cm/sec 8.0 mmHg MV A max kasandra: MV dec time: Ao max PG: LV V1 max: 65.5 cm/sec 0.13 sec 9.3 mmHg 141.8 cm/sec MV E/A: 1.7 HORACE(V,D): 2.1 cm2 PA V2 max: TR max kasandra: 139.4 cm/sec 349.5 cm/sec PA max P.8 mmHgTR max P.9 mmHg Left Ventricle The left ventricle is grossly normal size. There is normal left ventricular wall thickness. Left ventricular systolic function is moderate to severely reduced. LV EF is 35-40%. Doppler measurements suggest pseudonormalized left ventricular relaxation, which is associated with grade II/IV or mild to moderate diastolic dysfunction. There is moderate to severe global hypokinesis of the left ventricle. Right Ventricle The right ventricle is grossly normal size. The right ventricular systolic function is normal. Atria The right atrium is normal in size. The left atrium is moderately dilated. Mitral Valve The mitral valve is grossly normal. There is no mitral valve stenosis. There is a mild to moderate amount of mitral regurgitation. Aortic Valve The aortic valve is not well visualized secondary to technical limitations. There is no aortic valve stenosis. No aortic regurgitation is present. Tricuspid Valve The tricuspid valve is not well visualized, but is grossly normal. There is no tricuspid stenosis. There is a mild amount of tricuspid regurgitation. There is moderate pulmonary hypertension by echo. Right ventricular systolic pressure is estimated to be elevated at 50-60mmHg. Pulmonic Valve The pulmonic valve is not well visualized. Great Vessels The aortic root is not well visualized but is probably normal size. The inferior vena cava was not well visualized. Effusions Minimal pericardial effusion. : TATE FLEMING > Michela Kwon
[2017-12-12] MEDS: IPRATROPIUM/ALBUTEROL 0.5-2.5 MG/3 ML AMPUL NEB SCH ×4 (02:12→20:56)
[2017-12-12] MEDS: VANCOMYCIN HCL 1,500 MG in DEXTROSE 5%-WATER 250 ML IV SCH ×3 (05:13→22:36)
[2017-12-12 05:38] LABS: ARTERIAL BLOOD BASE EXCESS 1.4 mmol/L; ARTERIAL BLOOD H2CO3 1.05 mmol/L (1.05-1.35); ARTERIAL BLOOD HCO3 24.9 mmol/L (20-26); ARTERIAL BLOOD O2 SATURATION 97.9 % (94-98); ARTERIAL BLOOD PCO2 34.9 mmHg (35-45); ARTERIAL BLOOD PH 7.47 (7.35-7.45); ARTERIAL BLOOD PO2 98.7 mmHg (80-100)
[2017-12-12 05:39] LABS: ARTERIAL BLOOD FIO2 35%
[2017-12-12 06:22] LABS: HEMATOCRIT 31.5 % (37.9-51.0); HEMOGLOBIN 9.8 g/dL (13.5-17.0); MEAN CORPUSCULAR HEMOGLOBIN 22.1 pg (27.0-33.4); MEAN CORPUSCULAR HGB CONC 31.2 g/dL (32.0-36.0); MEAN CORPUSCULAR VOLUME 71 fl (80-97); PLATELET COUNT 255 10^3/uL (150-450); RED BLOOD COUNT 4.45 10^6/uL (4.35-5.55); RED CELL DISTRIBUTION WIDTH 16.3 % (11.5-14.0); WHITE BLOOD COUNT 17.7 10^3/uL (4.0-10.5)
[2017-12-12 06:37] LABS: ALANINE AMINOTRANSFERASE 44 U/L (21-72); ALBUMIN 2.7 g/dL (3.5-5.0); ALKALINE PHOSPHATASE 218 U/L (38-126); ANION GAP 10 (5-19); ASPARTATE AMINO TRANSFERASE 23 U/L (17-59); BILIRUBIN,DIRECT 0.2 mg/dL (0.0-0.4); BILIRUBIN,TOTAL 0.3 mg/dL (0.2-1.3); BLOOD UREA NITROGEN 18 mg/dL (7-20); CALCIUM 8.8 mg/dL (8.4-10.2); CARBON DIOXIDE 24 mmol/L (22-30); CHLORIDE 108 mmol/L (98-107); GLUCOSE 140 mg/dL (75-110); PHOSPHORUS 3.8 mg/dL (2.5-4.5); POTASSIUM 4.5 mmol/L (3.6-5.0); SODIUM 141.6 mmol/L (137-145); TOTAL PROTEIN 5.6 g/dL (6.3-8.2)
[2017-12-12 06:45] LABS: ABSOLUTE LYMPHOCYTES# (MANUAL) 1.6 10^3/uL (0.5-4.7); ABSOLUTE MONOCYTES # (MANUAL) 0.2 10^3/uL (0.1-1.4); ABSOLUTE NEUTROPHILS# (MANUAL) 15.9 10^3/uL (1.7-8.2); ANISOCYTOSIS 1+; BASOPHILS % (MANUAL) 0 % (0-2); EOSINOPHILS % (MANUAL) 0 % (0-6); LYMPHOCYTES % (MANUAL) 9 % (13-45); MONOCYTES % (MANUAL) 1 % (3-13); PLATELET COMMENT ADEQUATE; POLYCHROMASIA 1+; SEGMENTED NEUTROPHILS % (MAN) 90 % (42-78); TOTAL CELLS COUNTED 100
--- NOTE | 2017-12-12 07:44 | RADIOLOGY REPORT (SQ) ---
EXAM DESCRIPTION: XR CHEST 1 VIEW COMPLETED DATE/TME: 12/12/2017 06:00 CLINICAL HISTORY: 52 years Male, pna/resp failure COMPARISON: One day prior. NUMBER OF VIEWS/TECHNIQUE: 1/AP FINDINGS: Moderate to severe mixed airspace and interstitial opacities, right much more than left, normal cardiac silhouette. No pneumothorax. Skeletal structures are stable. Interval extubation. IMPRESSION: Interval extubation. Moderate to severe mixed airspace and interstitial opacity increased.
[2017-12-12] MEDS: METHYLPREDNISOLONE INJ 40 MG/1 ML SDV IV SCH ×2 (09:24→22:36)
[2017-12-12] MEDS: ENOXAPARIN SODIUM INJ 40 MG/0.4 ML DISP.SYRIN SUBCUT SCH (09:24)
[2017-12-12] MEDS: FAMOTIDINE INJ/PF 20 MG/2 ML SDV IV SCH ×2 (09:25→22:35)
[2017-12-12] MEDS: CEFEPIME 2 GM/D5W RTU 2 GM/50 ML RTUPB IV SCH ×2 (09:25→22:35)
[2017-12-12] MEDS: LEVOFLOXACIN 750 MG/D5W RTU 750 MG/150 ML RTUPB IV SCH (17:48)
--- NOTE | 2017-12-12 18:25 | PDOC PROGRESS REPORT ---
Subjective Progress Note for:: 12/12/17 Subjective:: 24 hours status post extubation stable Reason For Visit: PNEUMONIA Physical Exam Vital Signs: Temp Pulse Resp BP Pulse Ox 98.2 F 83 22 H 117/94 H 98 12/12/17 18:00 12/12/17 18:00 12/12/17 18:00 12/12/17 18:00 12/12/17 18:00 Intake & Output 12/11/17 12/12/17 12/13/17 06:59 06:59 06:59 Intake Total 2860 2301 1260 Output Total 2600 1225 750 Balance 260 1076 510 Weight 81.4 kg 82.3 kg General appearance: PRESENT: no acute distress, cooperative, disheveled Head exam: PRESENT: atraumatic, normocephalic Eye exam: PRESENT: conjunctiva pale, EOMI. ABSENT: nystagmus, periorbital swelling, scleral icterus Mouth exam: PRESENT: dry mucosa, neck supple, tongue midline Neck exam: ABSENT: carotid bruit, JVD, lymphadenopathy, thyromegaly, tracheal deviation, tracheostomy Respiratory exam: PRESENT: decreased breath sounds, prolonged expiratory phas, rales, rhonchi, unlabored. ABSENT: retraction, stridor Cardiovascular exam: PRESENT: RRR, +S1, +S2 Pulses: PRESENT: normal radial pulses GI/Abdominal exam: PRESENT: soft Gentrourinary exam: PRESENT: indwelling catheter Extremities exam: ABSENT: calf tenderness, clubbing, joint swelling Musculoskeletal exam: ABSENT: deformity, dislocation Neurological exam: PRESENT: awake, oriented to person, oriented to place Psychiatric exam: PRESENT: flat affect Skin exam: PRESENT: dry, warm Results Laboratory Results: 12/12/17 06:00 12/12/17 06:02 12/12/17 12/12/17 12/12/17 05:20 06:00 06:02 WBC 17.7 H RBC 4.45 Hgb 9.8 L Hct 31.5 L MCV 71 L MCH 22.1 L MCHC 31.2 L RDW 16.3 H Plt Count 255 Seg Neutrophils % Not Reportable Lymphocytes % Not Reportable Monocytes % Not Reportable Eosinophils % Not Reportable Basophils % Not Reportable Absolute Neutrophils Not Reportable Absolute Lymphocytes Not Reportable Absolute Monocytes Not Reportable Absolute Eosinophils Not Reportable Absolute Basophils Not Reportable Carbonic Acid 1.05 HCO3/H2CO3 Ratio 23:1 ABG pH 7.47 H ABG pCO2 34.9 L ABG pO2 98.7 ABG HCO3 24.9 ABG O2 Saturation 97.9 ABG Base Excess 1.4 FiO2 35% Sodium 141.6 Potassium 4.5 Chloride 108 H Carbon Dioxide 24 Anion Gap 10 BUN 18 Creatinine 0.51 L Est GFR ( Amer) > 60 Est GFR (Non-Af Amer) > 60 Glucose 140 H Calcium 8.8 Phosphorus 3.8 Magnesium 2.3 Total Bilirubin 0.3 AST 23 ALT 44 Alkaline Phosphatase 218 H Total Protein 5.6 L Albumin 2.7 L Impressions: Chest/Abdomen CTA 12/10/17 11:31 IMPRESSION: 1.There are diffuse bilateral pulmonary airspace infiltrates and perihilar regions. Small effusions bilaterally. The findings can be seen with pulmonary edema, pneumonia, ARDS. Findings consistent with soft tissue anasarca. 2. Cortical cysts of the kidneys . Chest X-Ray 12/12/17 06:00 IMPRESSION: Interval extubation. Moderate to severe mixed airspace and interstitial opacity increased. Assessment & Plan - Diagnosis (1) Hypertension Is this a current diagnosis for this admission?: Yes Plan: stable at this time (2) Pneumonia Qualifiers: Laterality: bilateral Is this a current diagnosis for this admission?: Yes Plan: Gram-positive cocci in sputum (3) Respiratory failure Qualifiers: Chronicity: acute Respiratory failure complication: hypoxia Qualified Code(s): J96.01 - Acute respiratory failure with hypoxia Is this a current diagnosis for this admission?: Yes Plan: Stable on BiPAP (4) Smoking Is this a current diagnosis for this admission?: Yes - Time Total Critical Time (Minutes): 45
[2017-12-12 22:18] LABS: VANCOMYCIN,TROUGH 14.4 ug/mL (5.0-20.0)
--- NOTE | 2017-12-12 23:03 | PDOC PROGRESS REPORT ---
Subjective Progress Note for:: 12/12/17 Subjective:: The patient is resting quietly. No acute distress. Still on BIPAP. Reason For Visit: PNEUMONIA Physical Exam Vital Signs: Temp Pulse Resp BP Pulse Ox 97.3 F 86 22 H 118/84 100 12/12/17 20:00 12/12/17 20:56 12/12/17 21:00 12/12/17 20:53 12/12/17 21:00 Intake & Output 12/11/17 12/12/17 12/13/17 06:59 06:59 06:59 Intake Total 2860 2301 1260 Output Total 2600 1225 1125 Balance 260 1076 135 Weight 81.4 kg 82.3 kg General appearance: PRESENT: no acute distress Respiratory exam: PRESENT: other - Positive for increased work of breathing. N. ABSENT: rales, rhonchi, wheezes Cardiovascular exam: PRESENT: RRR. ABSENT: gallop, rubs, systolic murmur Pulses: PRESENT: normal femoral pulses GI/Abdominal exam: PRESENT: normal bowel sounds, soft. ABSENT: hernia, mass, organolmegaly, tenderness Rectal exam: PRESENT: deferred Extremities exam: ABSENT: clubbing, pedal edema, tenderness Musculoskeletal exam: PRESENT: normal inspection. ABSENT: deformity, tenderness Neurological exam: PRESENT: alert, awake, CN II-XII grossly intact. ABSENT: motor sensory deficit Psychiatric exam: PRESENT: appropriate affect, normal mood Skin exam: PRESENT: dry, intact, warm Results Laboratory Results: 12/12/17 06:00 12/12/17 06:02 12/12/17 12/12/17 12/12/17 05:20 06:00 06:02 WBC 17.7 H RBC 4.45 Hgb 9.8 L Hct 31.5 L MCV 71 L MCH 22.1 L MCHC 31.2 L RDW 16.3 H Plt Count 255 Seg Neutrophils % Not Reportable Lymphocytes % Not Reportable Monocytes % Not Reportable Eosinophils % Not Reportable Basophils % Not Reportable Absolute Neutrophils Not Reportable Absolute Lymphocytes Not Reportable Absolute Monocytes Not Reportable Absolute Eosinophils Not Reportable Absolute Basophils Not Reportable Carbonic Acid 1.05 HCO3/H2CO3 Ratio 23:1 ABG pH 7.47 H ABG pCO2 34.9 L ABG pO2 98.7 ABG HCO3 24.9 ABG O2 Saturation 97.9 ABG Base Excess 1.4 FiO2 35% Sodium 141.6 Potassium 4.5 Chloride 108 H Carbon Dioxide 24 Anion Gap 10 BUN 18 Creatinine 0.51 L Est GFR ( Amer) > 60 Est GFR (Non-Af Amer) > 60 Glucose 140 H Calcium 8.8 Phosphorus 3.8 Magnesium 2.3 Total Bilirubin 0.3 AST 23 ALT 44 Alkaline Phosphatase 218 H Total Protein 5.6 L Albumin 2.7 L 12/12/17 12/12/17 06:00 06:02 WBC 17.7 H RBC 4.45 Hgb 9.8 L Hct 31.5 L MCV 71 L MCH 22.1 L MCHC 31.2 L RDW 16.3 H Plt Count 255 Sodium 141.6 Potassium 4.5 Chloride 108 H Carbon Dioxide 24 Anion Gap 10 BUN 18 Creatinine 0.51 L Est GFR ( Amer) > 60 Glucose 140 H Calcium 8.8 Phosphorus 3.8 Magnesium 2.3 Total Bilirubin 0.3 Direct Bilirubin 0.2 AST 23 ALT 44 Alkaline Phosphatase 218 H Total Protein 5.6 L Albumin 2.7 L Impressions: Chest/Abdomen CTA 12/10/17 11:31 IMPRESSION: 1.There are diffuse bilateral pulmonary airspace infiltrates and perihilar regions. Small effusions bilaterally. The findings can be seen with pulmonary edema, pneumonia, ARDS. Findings consistent with soft tissue anasarca. 2. Cortical cysts of the kidneys . Chest X-Ray 12/12/17 06:00 IMPRESSION: Interval extubation. Moderate to severe mixed airspace and interstitial opacity increased. Assessment & Plan - Diagnosis (1) Hypertension Qualifiers: Hypertension type: essential hypertension Qualified Code(s): I10 - Essential (primary) hypertension Is this a current diagnosis for this admission?: Yes Plan: Continue home medications. (2) Pneumonia Qualifiers: Pneumonia type: due to unspecified organism Laterality: bilateral Lung location: unspecified part of lung Qualified Code(s): J18.9 - Pneumonia, unspecified organism Is this a current diagnosis for this admission?: Yes Plan: Continue IV antibiotics. Respiratory support via BIPAP as per pulmonology. (3) Respiratory failure Qualifiers: Chronicity: acute Respiratory failure complication: hypoxia Qualified Code(s): J96.01 - Acute respiratory failure with hypoxia Is this a current diagnosis for this admission?: Yes Plan: Extubated. On BIPAP. The patient will remain in the ICU for now as pulmonology wants that patient to stay on BIPAP as much as possible today. (4) Smoking Is this a current diagnosis for this admission?: Yes Plan: Nicotine patch. - Time Time Spent with patient: 25-34 minutes Medications reviewed and adjusted accordingly: Yes
[2017-12-13] MEDS: IPRATROPIUM/ALBUTEROL 0.5-2.5 MG/3 ML AMPUL NEB SCH ×4 (01:57→20:15)
[2017-12-13 04:08] LABS: ABSOLUTE LYMPHOCYTES (AUTO) 0.8 10^3/uL (0.5-4.7); ABSOLUTE MONOCYTES (AUTO) 0.4 10^3/uL (0.1-1.4); ABSOLUTE NEUT (AUTO) 13.9 10^3/uL (1.7-8.2); BASOPHILS % (AUTO) 0.3 % (0-2); HEMOGLOBIN 10.5 g/dL (13.5-17.0); LYMPHOCYTES % (AUTO) 5.2 % (13-45); MEAN CORPUSCULAR HEMOGLOBIN 22.3 pg (27.0-33.4); MEAN CORPUSCULAR VOLUME 72 fl (80-97); MONOCYTES % (AUTO) 2.5 % (3-13); PLATELET COUNT 293 10^3/uL (150-450); RED BLOOD COUNT 4.73 10^6/uL (4.35-5.55); RED CELL DISTRIBUTION WIDTH 16.3 % (11.5-14.0); TOTAL CELLS COUNTED % (AUTO) 100 %; WHITE BLOOD COUNT 15.1 10^3/uL (4.0-10.5)
[2017-12-13 05:21] LABS: ARTERIAL BLOOD BASE EXCESS 0.6 mmol/L; ARTERIAL BLOOD HCO3 24.5 mmol/L (20-26); ARTERIAL BLOOD O2 SATURATION 98.3 % (94-98); ARTERIAL BLOOD PCO2 36.7 mmHg (35-45); ARTERIAL BLOOD PH 7.44 (7.35-7.45); ARTERIAL BLOOD PO2 112.9 mmHg (80-100); ARTERIAL BLOOD TOTAL CO2 25.7 mmol/L (23-27)
[2017-12-13 05:22] LABS: ARTERIAL BLOOD FIO2 30%
[2017-12-13 05:29] LABS: ALANINE AMINOTRANSFERASE 62 U/L (21-72); ALBUMIN 2.7 g/dL (3.5-5.0); ALKALINE PHOSPHATASE 207 U/L (38-126); ANION GAP 9 (5-19); ASPARTATE AMINO TRANSFERASE 48 U/L (17-59); BILIRUBIN,DIRECT 0.3 mg/dL (0.0-0.4); BILIRUBIN,TOTAL 0.3 mg/dL (0.2-1.3); BLOOD UREA NITROGEN 17 mg/dL (7-20); CALCIUM 8.8 mg/dL (8.4-10.2); CARBON DIOXIDE 22 mmol/L (22-30); CHLORIDE 105 mmol/L (98-107); GLUCOSE 176 mg/dL (75-110); POTASSIUM 4.6 mmol/L (3.6-5.0); SODIUM 136.3 mmol/L (137-145); TOTAL PROTEIN 5.8 g/dL (6.3-8.2)
[2017-12-13] MEDS: VANCOMYCIN HCL 1,500 MG in DEXTROSE 5%-WATER 250 ML IV SCH ×3 (05:36→21:35)
--- NOTE | 2017-12-13 07:37 | RADIOLOGY REPORT (SQ) ---
EXAM DESCRIPTION: XR CHEST 1 VIEW COMPLETED DATE/TME: 12/13/2017 06:00 CLINICAL HISTORY: 52 years Male, pna COMPARISON: One day prior. NUMBER OF VIEWS/TECHNIQUE: 1/AP FINDINGS: Moderate mixed airspace and interstitial opacity, right more the left, mildly enlarged cardiac silhouette, atherosclerosis. No pneumothorax. Skeletal structures are stable. IMPRESSION: No significant change.
[2017-12-13] MEDS: CEFEPIME 2 GM/D5W RTU 2 GM/50 ML RTUPB IV SCH ×2 (11:10→21:35)
[2017-12-13] MEDS: FAMOTIDINE INJ/PF 20 MG/2 ML SDV IV SCH ×2 (11:14→21:36)
[2017-12-13] MEDS: ENOXAPARIN SODIUM INJ 40 MG/0.4 ML DISP.SYRIN SUBCUT SCH (11:14)
[2017-12-13] MEDS: METHYLPREDNISOLONE INJ 40 MG/1 ML SDV IV SCH ×2 (11:14→21:36)
--- NOTE | 2017-12-13 11:15 | PDOC PROGRESS REPORT ---
Subjective Progress Note for:: 12/13/17 Subjective:: Improving Reason For Visit: PNEUMONIA Physical Exam Vital Signs: Temp Pulse Resp BP Pulse Ox 97.9 F 90 23 H 146/108 H 99 12/13/17 00:00 12/13/17 01:57 12/13/17 07:00 12/13/17 06:10 12/13/17 07:00 Intake & Output 12/12/17 12/13/17 12/14/17 06:59 06:59 06:59 Intake Total 2301 1510 Output Total 1225 1525 Balance 1076 -15 Weight 82.3 kg 84.7 kg General appearance: PRESENT: no acute distress, disheveled, obese. ABSENT: cooperative Head exam: PRESENT: atraumatic, normocephalic Eye exam: PRESENT: conjunctiva pale, EOMI. ABSENT: nystagmus, periorbital swelling, scleral icterus Mouth exam: PRESENT: dry mucosa, neck supple, tongue midline Neck exam: ABSENT: carotid bruit, JVD, lymphadenopathy, thyromegaly, tracheal deviation, tracheostomy Respiratory exam: PRESENT: crackles, decreased breath sounds, prolonged expiratory phas, rhonchi, unlabored. ABSENT: retraction, stridor Cardiovascular exam: PRESENT: RRR, +S1, +S2 Pulses: PRESENT: normal radial pulses GI/Abdominal exam: PRESENT: hypoactive bowel sounds, soft Gentrourinary exam: PRESENT: indwelling catheter Extremities exam: ABSENT: calf tenderness, full ROM, joint swelling Musculoskeletal exam: ABSENT: ambulatory, deformity, dislocation, full ROM Neurological exam: ABSENT: awake, oriented to person, oriented to place, oriented to time, oriented to situation Skin exam: PRESENT: dry, warm Results Laboratory Results: 12/13/17 03:36 12/13/17 04:55 12/13/17 12/13/17 12/13/17 03:36 03:36 04:55 WBC 15.1 H RBC 4.73 Hgb 10.5 L Hct 34.0 L MCV 72 L MCH 22.3 L MCHC 31.0 L RDW 16.3 H Plt Count 293 Seg Neutrophils % 92.0 H Lymphocytes % 5.2 L Monocytes % 2.5 L Eosinophils % 0.0 Basophils % 0.3 Absolute Neutrophils 13.9 H Absolute Lymphocytes 0.8 Absolute Monocytes 0.4 Absolute Eosinophils 0.0 Absolute Basophils 0.0 Carbonic Acid HCO3/H2CO3 Ratio ABG pH ABG pCO2 ABG pO2 ABG HCO3 ABG O2 Saturation ABG Base Excess FiO2 Sodium Cancelled 136.3 L Potassium Cancelled 4.6 Chloride Cancelled 105 Carbon Dioxide Cancelled 22 Anion Gap Cancelled 9 BUN Cancelled 17 Creatinine Cancelled 0.55 Est GFR ( Amer) Cancelled > 60 Est GFR (Non-Af Amer) Cancelled > 60 Glucose Cancelled 176 H Calcium Cancelled 8.8 Magnesium Cancelled 2.2 Total Bilirubin Cancelled 0.3 AST Cancelled 48 ALT Cancelled 62 Alkaline Phosphatase Cancelled 207 H Total Protein Cancelled 5.8 L Albumin Cancelled 2.7 L 12/13/17 04:55 WBC RBC Hgb Hct MCV MCH MCHC RDW Plt Count Seg Neutrophils % Lymphocytes % Monocytes % Eosinophils % Basophils % Absolute Neutrophils Absolute Lymphocytes Absolute Monocytes Absolute Eosinophils Absolute Basophils Carbonic Acid 1.10 HCO3/H2CO3 Ratio 22:1 ABG pH 7.44 ABG pCO2 36.7 ABG pO2 112.9 H ABG HCO3 24.5 ABG O2 Saturation 98.3 H ABG Base Excess 0.6 FiO2 30% Sodium Potassium Chloride Carbon Dioxide Anion Gap BUN Creatinine Est GFR ( Amer) Est GFR (Non-Af Amer) Glucose Calcium Magnesium Total Bilirubin AST ALT Alkaline Phosphatase Total Protein Albumin 12/10/17 15:41 Tracheal Aspirate Gram Stain - Final 12/10/17 15:41 Tracheal Aspirate Sputum Culture - Final Staphylococcus Aureus Normal Elissa Absent Impressions: Chest/Abdomen CTA 12/10/17 11:31 IMPRESSION: 1.There are diffuse bilateral pulmonary airspace infiltrates and perihilar regions. Small effusions bilaterally. The findings can be seen with pulmonary edema, pneumonia, ARDS. Findings consistent with soft tissue anasarca. 2. Cortical cysts of the kidneys . Chest X-Ray 12/13/17 06:00 IMPRESSION: No significant change. Assessment & Plan - Diagnosis (1) Hypertension Qualifiers: Hypertension type: essential hypertension Qualified Code(s): I10 - Essential (primary) hypertension Is this a current diagnosis for this admission?: Yes Plan: stable at this time (2) Pneumonia Qualifiers: Pneumonia type: due to unspecified organism Laterality: bilateral Lung location: unspecified part of lung Qualified Code(s): J18.9 - Pneumonia, unspecified organism Is this a current diagnosis for this admission?: Yes Plan: Gram-positive cocci in sputum (3) Respiratory failure Qualifiers: Chronicity: acute Respiratory failure complication: hypoxia Qualified Code(s): J96.01 - Acute respiratory failure with hypoxia Is this a current diagnosis for this admission?: Yes Plan: Stable on BiPAP (4) Smoking Is this a current diagnosis for this admission?: Yes - Time Total Critical Time (Minutes): 55
[2017-12-13] MEDS: LEVOFLOXACIN 750 MG/D5W RTU 750 MG/150 ML RTUPB IV SCH (17:24)
--- NOTE | 2017-12-13 18:48 | PDOC PROGRESS REPORT ---
Subjective Progress Note for:: 12/13/17 Subjective:: The patient is doing well off of BIPAP. No new complaints. Reason For Visit: PNEUMONIA Physical Exam Vital Signs: Temp Pulse Resp BP Pulse Ox 97.7 F 88 24 H 126/78 H 98 12/13/17 16:00 12/13/17 16:00 12/13/17 18:00 12/13/17 17:11 12/13/17 18:00 Intake & Output 12/12/17 12/13/17 12/14/17 06:59 06:59 06:59 Intake Total 2301 1710 2216 Output Total 1225 1525 2400 Balance 1076 185 -184 Weight 82.3 kg 84.7 kg General appearance: PRESENT: no acute distress, well-developed, well-nourished Respiratory exam: PRESENT: other - Diminished breath sounds bilaterally. No increased work of breathing. Cardiovascular exam: PRESENT: RRR, other - No lateral PMI. No thrills.. ABSENT : gallop, rubs, systolic murmur Pulses: PRESENT: normal dorsalis pedis pul GI/Abdominal exam: PRESENT: normal bowel sounds, soft. ABSENT: hernia, mass, organolmegaly, tenderness Extremities exam: ABSENT: clubbing, pedal edema, tenderness Musculoskeletal exam: ABSENT: deformity, dislocation, normal inspection Neurological exam: PRESENT: alert, awake, oriented to person, oriented to place , oriented to time, oriented to situation, CN II-XII grossly intact. ABSENT: motor sensory deficit Psychiatric exam: PRESENT: appropriate affect, normal mood Skin exam: PRESENT: dry, intact, warm Results Laboratory Results: 12/13/17 03:36 12/13/17 04:55 12/13/17 12/13/17 12/13/17 03:36 03:36 04:55 WBC 15.1 H RBC 4.73 Hgb 10.5 L Hct 34.0 L MCV 72 L MCH 22.3 L MCHC 31.0 L RDW 16.3 H Plt Count 293 Seg Neutrophils % 92.0 H Lymphocytes % 5.2 L Monocytes % 2.5 L Eosinophils % 0.0 Basophils % 0.3 Absolute Neutrophils 13.9 H Absolute Lymphocytes 0.8 Absolute Monocytes 0.4 Absolute Eosinophils 0.0 Absolute Basophils 0.0 Carbonic Acid HCO3/H2CO3 Ratio ABG pH ABG pCO2 ABG pO2 ABG HCO3 ABG O2 Saturation ABG Base Excess FiO2 Sodium Cancelled 136.3 L Potassium Cancelled 4.6 Chloride Cancelled 105 Carbon Dioxide Cancelled 22 Anion Gap Cancelled 9 BUN Cancelled 17 Creatinine Cancelled 0.55 Est GFR ( Amer) Cancelled > 60 Est GFR (Non-Af Amer) Cancelled > 60 Glucose Cancelled 176 H Calcium Cancelled 8.8 Magnesium Cancelled 2.2 Total Bilirubin Cancelled 0.3 AST Cancelled 48 ALT Cancelled 62 Alkaline Phosphatase Cancelled 207 H Total Protein Cancelled 5.8 L Albumin Cancelled 2.7 L 12/13/17 04:55 WBC RBC Hgb Hct MCV MCH MCHC RDW Plt Count Seg Neutrophils % Lymphocytes % Monocytes % Eosinophils % Basophils % Absolute Neutrophils Absolute Lymphocytes Absolute Monocytes Absolute Eosinophils Absolute Basophils Carbonic Acid 1.10 HCO3/H2CO3 Ratio 22:1 ABG pH 7.44 ABG pCO2 36.7 ABG pO2 112.9 H ABG HCO3 24.5 ABG O2 Saturation 98.3 H ABG Base Excess 0.6 FiO2 30% Sodium Potassium Chloride Carbon Dioxide Anion Gap BUN Creatinine Est GFR ( Amer) Est GFR (Non-Af Amer) Glucose Calcium Magnesium Total Bilirubin AST ALT Alkaline Phosphatase Total Protein Albumin 12/10/17 15:41 Tracheal Aspirate Gram Stain - Final 12/10/17 15:41 Tracheal Aspirate Sputum Culture - Final Staphylococcus Aureus Normal Elissa Absent Impressions: Chest/Abdomen CTA 12/10/17 11:31 IMPRESSION: 1.There are diffuse bilateral pulmonary airspace infiltrates and perihilar regions. Small effusions bilaterally. The findings can be seen with pulmonary edema, pneumonia, ARDS. Findings consistent with soft tissue anasarca. 2. Cortical cysts of the kidneys . Chest X-Ray 12/13/17 06:00 IMPRESSION: No significant change. Assessment & Plan - Diagnosis (1) Hypertension Qualifiers: Hypertension type: essential hypertension Qualified Code(s): I10 - Essential (primary) hypertension Is this a current diagnosis for this admission?: Yes Plan: Continue home medications. Fair control. (2) Pneumonia Qualifiers: Pneumonia type: due to unspecified organism Laterality: bilateral Lung location: unspecified part of lung Qualified Code(s): J18.9 - Pneumonia, unspecified organism Is this a current diagnosis for this admission?: Yes Plan: Continue IV antibiotics. Doing well off of BIPAP. Will transfer patient to the floor. (3) Respiratory failure Qualifiers: Chronicity: acute Respiratory failure complication: hypoxia Qualified Code(s): J96.01 - Acute respiratory failure with hypoxia Is this a current diagnosis for this admission?: Yes Plan: Extubated. Off of BIPAP. The patient will be transferred to the floor. (4) Smoking Is this a current diagnosis for this admission?: Yes Plan: Nicotine patch. Tobacco cessation counseling. - Time Time Spent with patient: 35 or more minutes Medications reviewed and adjusted accordingly: Yes
[2017-12-14] MEDS: IPRATROPIUM/ALBUTEROL 0.5-2.5 MG/3 ML AMPUL NEB SCH ×4 (03:30→19:58)
[2017-12-14] MEDS: VANCOMYCIN HCL 1,500 MG in DEXTROSE 5%-WATER 250 ML IV SCH ×3 (05:44→22:28)
[2017-12-14 07:06] LABS: ABSOLUTE BASOPHILS # (AUTO) 0.1 10^3/uL (0.0-0.2); ABSOLUTE LYMPHOCYTES (AUTO) 1.1 10^3/uL (0.5-4.7); ABSOLUTE MONOCYTES (AUTO) 0.5 10^3/uL (0.1-1.4); ABSOLUTE NEUT (AUTO) 13.2 10^3/uL (1.7-8.2); BASOPHILS % (AUTO) 0.4 % (0-2); HEMATOCRIT 36.4 % (37.9-51.0); HEMOGLOBIN 11.4 g/dL (13.5-17.0); LYMPHOCYTES % (AUTO) 7.6 % (13-45); MEAN CORPUSCULAR HEMOGLOBIN 22.1 pg (27.0-33.4); MEAN CORPUSCULAR HGB CONC 31.3 g/dL (32.0-36.0); MEAN CORPUSCULAR VOLUME 70 fl (80-97); MONOCYTES % (AUTO) 3.2 % (3-13); PLATELET COUNT 276 10^3/uL (150-450); RED BLOOD COUNT 5.17 10^6/uL (4.35-5.55); RED CELL DISTRIBUTION WIDTH 16.1 % (11.5-14.0); SEGMENTED NEUTROPHILS % (AUTO) 88.8 % (42-78); TOTAL CELLS COUNTED % (AUTO) 100 %; WHITE BLOOD COUNT 14.8 10^3/uL (4.0-10.5)
[2017-12-14 07:29] LABS: ALANINE AMINOTRANSFERASE 71 U/L (21-72); ALBUMIN 2.8 g/dL (3.5-5.0); ALKALINE PHOSPHATASE 189 U/L (38-126); ANION GAP 12 (5-19); ASPARTATE AMINO TRANSFERASE 37 U/L (17-59); BILIRUBIN,DIRECT 0.2 mg/dL (0.0-0.4); BILIRUBIN,TOTAL 0.2 mg/dL (0.2-1.3); BLOOD UREA NITROGEN 12 mg/dL (7-20); CALCIUM 8.8 mg/dL (8.4-10.2); CARBON DIOXIDE 24 mmol/L (22-30); CHLORIDE 102 mmol/L (98-107); GLUCOSE 141 mg/dL (75-110); POTASSIUM 4.2 mmol/L (3.6-5.0); SODIUM 138.2 mmol/L (137-145); TOTAL PROTEIN 5.8 g/dL (6.3-8.2)
[2017-12-14] MEDS: FAMOTIDINE INJ/PF 20 MG/2 ML SDV IV SCH (10:04)
[2017-12-14] MEDS: METHYLPREDNISOLONE INJ 40 MG/1 ML SDV IV SCH ×2 (10:04→21:08)
[2017-12-14] MEDS: CEFEPIME 2 GM/D5W RTU 2 GM/50 ML RTUPB IV SCH ×2 (10:05→21:09)
[2017-12-14] MEDS: ENOXAPARIN SODIUM INJ 40 MG/0.4 ML DISP.SYRIN SUBCUT SCH (10:05)
[2017-12-14 10:20] LABS: ARTERIAL BLOOD BASE EXCESS 2.4 mmol/L; ARTERIAL BLOOD H2CO3 1.24 mmol/L (1.05-1.35); ARTERIAL BLOOD HCO3 26.9 mmol/L (20-26); ARTERIAL BLOOD O2 SATURATION 95.2 % (94-98); ARTERIAL BLOOD PCO2 41.3 mmHg (35-45); ARTERIAL BLOOD PH 7.43 (7.35-7.45); ARTERIAL BLOOD PO2 73.9 mmHg (80-100); ARTERIAL BLOOD TOTAL CO2 28.2 mmol/L (23-27)
[2017-12-14 10:21] LABS: ARTERIAL BLOOD FIO2 21%
--- NOTE | 2017-12-14 12:56 | RADIOLOGY REPORT (SQ) ---
EXAM DESCRIPTION: CHEST SINGLE VIEW COMPLETED DATE/TIME: 12/14/2017 11:34 am REASON FOR STUDY: resp failure COMPARISON: CT angio chest 12/10/2017 AP chest 12/11/2017, 12/12/2017, 12/13/2017 EXAM PARAMETERS: NUMBER OF VIEWS: One view. TECHNIQUE: Single frontal radiographic view of the chest acquired. RADIATION DOSE: NA LIMITATIONS: None. FINDINGS: LUNGS AND PLEURA: Further clearing of the dense right-sided airspace disease compatible wi th resolving pneumonia or pneumonitis. No left-sided infiltrates. No pleural effusions or pneumothorax. MEDIASTINUM AND HILAR STRUCTURES: No masses. Contour normal. HEART AND VASCULAR STRUCTURES: Stable cardiomegaly BONES: No acute findings. HARDWARE: None in the chest. OTHER: No other significant finding. IMPRESSION: Further clearing of dense airspace disease in the right lung compatible with resolving p neumonia or pneumonitis. Stable cardiomegaly TECHNICAL DOCUMENTATION: JOB ID: [id number] [employer]- All Rights Reserved Reading location - IP/workstation name: [email or web address]
--- NOTE | 2017-12-14 13:32 | PDOC PROGRESS REPORT ---
Subjective Progress Note for:: 12/14/17 Subjective:: The patient states that he feels that he is at his baseline respiratory status. No new complaints. Reason For Visit: PNEUMONIA Physical Exam Vital Signs: Temp Pulse Resp BP Pulse Ox 98.4 F 93 16 104/76 95 12/14/17 12:19 12/14/17 12:19 12/14/17 12:19 12/14/17 12:19 12/14/17 12:19 Intake & Output 12/13/17 12/14/17 12/15/17 06:59 06:59 06:59 Intake Total 1710 3108 1433 Output Total 1525 3650 Balance 185 -542 1433 Weight 84.7 kg General appearance: PRESENT: no acute distress, cooperative, well-developed, well-nourished Neck exam: ABSENT: JVD, lymphadenopathy, tenderness, thyromegaly Respiratory exam: PRESENT: other - No increased work of breathing.. ABSENT: rales, rhonchi, wheezes Cardiovascular exam: PRESENT: RRR. ABSENT: gallop, rubs, systolic murmur Pulses: PRESENT: normal dorsalis pedis pul GI/Abdominal exam: PRESENT: normal bowel sounds, soft. ABSENT: hernia, mass, organolmegaly, tenderness Extremities exam: ABSENT: calf tenderness, clubbing, joint swelling, tenderness , +1 edema Musculoskeletal exam: PRESENT: normal inspection. ABSENT: dislocation, tenderness Neurological exam: PRESENT: alert, awake, oriented to person, oriented to place , oriented to time, oriented to situation, CN II-XII grossly intact. ABSENT: motor sensory deficit Psychiatric exam: PRESENT: appropriate affect, normal mood Skin exam: PRESENT: dry, intact, warm Results Laboratory Results: 12/14/17 06:15 12/14/17 06:15 12/14/17 12/14/17 12/14/17 06:15 06:15 10:00 WBC 14.8 H RBC 5.17 Hgb 11.4 L Hct 36.4 L MCV 70 L MCH 22.1 L MCHC 31.3 L RDW 16.1 H Plt Count 276 Seg Neutrophils % 88.8 H Lymphocytes % 7.6 L Monocytes % 3.2 Eosinophils % 0.0 Basophils % 0.4 Absolute Neutrophils 13.2 H Absolute Lymphocytes 1.1 Absolute Monocytes 0.5 Absolute Eosinophils 0.0 Absolute Basophils 0.1 Carbonic Acid 1.24 HCO3/H2CO3 Ratio 21:1 ABG pH 7.43 ABG pCO2 41.3 ABG pO2 73.9 L ABG HCO3 26.9 H ABG O2 Saturation 95.2 ABG Base Excess 2.4 FiO2 21% Sodium 138.2 Potassium 4.2 Chloride 102 Carbon Dioxide 24 Anion Gap 12 BUN 12 Creatinine 0.59 Est GFR ( Amer) > 60 Est GFR (Non-Af Amer) > 60 Glucose 141 H Calcium 8.8 Magnesium 2.1 Total Bilirubin 0.2 AST 37 ALT 71 Alkaline Phosphatase 189 H Total Protein 5.8 L Albumin 2.8 L Impressions: Chest/Abdomen CTA 12/10/17 11:31 IMPRESSION: 1.There are diffuse bilateral pulmonary airspace infiltrates and perihilar regions. Small effusions bilaterally. The findings can be seen with pulmonary edema, pneumonia, ARDS. Findings consistent with soft tissue anasarca. 2. Cortical cysts of the kidneys . Chest X-Ray 12/14/17 06:00 IMPRESSION: Further clearing of dense airspace disease in the right lung compatible with resolving pneumonia or pneumonitis. Stable cardiomegaly Assessment & Plan - Diagnosis (1) Hypertension Qualifiers: Hypertension type: essential hypertension Qualified Code(s): I10 - Essential (primary) hypertension Is this a current diagnosis for this admission?: Yes Plan: Continue home medications. Fair control. (2) Pneumonia Qualifiers: Pneumonia type: due to unspecified organism Laterality: bilateral Lung location: unspecified part of lung Qualified Code(s): J18.9 - Pneumonia, unspecified organism Is this a current diagnosis for this admission?: Yes Plan: Continue IV antibiotics. CXR demonstrates interval clearing of consolidate. As per pulmonology. (3) Respiratory failure Qualifiers: Chronicity: acute Respiratory failure complication: hypoxia Qualified Code(s): J96.01 - Acute respiratory failure with hypoxia Is this a current diagnosis for this admission?: Yes Plan: Extubated. Off of BIPAP. The patient is saturating in the mid 90's on room air. (4) Smoking Is this a current diagnosis for this admission?: Yes Plan: Nicotine patch. Tobacco cessation counseling. - Time Time Spent with patient: 25-34 minutes Medications reviewed and adjusted accordingly: Yes Anticipated discharge: Home Within: within 24 hours
--- NOTE | 2017-12-14 15:30 | PDOC PROGRESS REPORT ---
Subjective Progress Note for:: 12/14/17 Subjective:: Improving Reason For Visit: PNEUMONIA Physical Exam Vital Signs: Temp Pulse Resp BP Pulse Ox 98.4 F 86 16 104/76 100 12/14/17 12:19 12/14/17 14:43 12/14/17 14:43 12/14/17 12:19 12/14/17 14:43 Intake & Output 12/13/17 12/14/17 12/15/17 06:59 06:59 06:59 Intake Total 1710 3108 1433 Output Total 1525 3650 Balance 185 -542 1433 Weight 84.7 kg General appearance: PRESENT: no acute distress, cooperative, disheveled Head exam: PRESENT: atraumatic, normocephalic Eye exam: PRESENT: conjunctiva pale, EOMI. ABSENT: nystagmus, periorbital swelling, scleral icterus Mouth exam: PRESENT: dry mucosa, neck supple, tongue midline Neck exam: ABSENT: carotid bruit, JVD, lymphadenopathy, thyromegaly, tracheal deviation, tracheostomy Respiratory exam: PRESENT: decreased breath sounds, prolonged expiratory phas, rales, rhonchi, unlabored. ABSENT: retraction, stridor Cardiovascular exam: PRESENT: RRR, +S1, +S2 Pulses: PRESENT: normal radial pulses GI/Abdominal exam: PRESENT: hypoactive bowel sounds, soft Extremities exam: ABSENT: calf tenderness, clubbing, joint swelling Musculoskeletal exam: ABSENT: deformity, dislocation Neurological exam: PRESENT: alert, awake Psychiatric exam: PRESENT: normal mood Skin exam: PRESENT: dry, warm Results Laboratory Results: 12/14/17 06:15 12/14/17 06:15 12/14/17 12/14/17 12/14/17 06:15 06:15 10:00 WBC 14.8 H RBC 5.17 Hgb 11.4 L Hct 36.4 L MCV 70 L MCH 22.1 L MCHC 31.3 L RDW 16.1 H Plt Count 276 Seg Neutrophils % 88.8 H Lymphocytes % 7.6 L Monocytes % 3.2 Eosinophils % 0.0 Basophils % 0.4 Absolute Neutrophils 13.2 H Absolute Lymphocytes 1.1 Absolute Monocytes 0.5 Absolute Eosinophils 0.0 Absolute Basophils 0.1 Carbonic Acid 1.24 HCO3/H2CO3 Ratio 21:1 ABG pH 7.43 ABG pCO2 41.3 ABG pO2 73.9 L ABG HCO3 26.9 H ABG O2 Saturation 95.2 ABG Base Excess 2.4 FiO2 21% Sodium 138.2 Potassium 4.2 Chloride 102 Carbon Dioxide 24 Anion Gap 12 BUN 12 Creatinine 0.59 Est GFR ( Amer) > 60 Est GFR (Non-Af Amer) > 60 Glucose 141 H Calcium 8.8 Magnesium 2.1 Total Bilirubin 0.2 AST 37 ALT 71 Alkaline Phosphatase 189 H Total Protein 5.8 L Albumin 2.8 L Impressions: Chest/Abdomen CTA 12/10/17 11:31 IMPRESSION: 1.There are diffuse bilateral pulmonary airspace infiltrates and perihilar regions. Small effusions bilaterally. The findings can be seen with pulmonary edema, pneumonia, ARDS. Findings consistent with soft tissue anasarca. 2. Cortical cysts of the kidneys . Chest X-Ray 12/14/17 06:00 IMPRESSION: Further clearing of dense airspace disease in the right lung compatible with resolving pneumonia or pneumonitis. Stable cardiomegaly Assessment & Plan - Diagnosis (1) Hypertension Qualifiers: Hypertension type: essential hypertension Qualified Code(s): I10 - Essential (primary) hypertension Is this a current diagnosis for this admission?: Yes Plan: stable at this time (2) Pneumonia Qualifiers: Pneumonia type: due to unspecified organism Laterality: bilateral Lung location: unspecified part of lung Qualified Code(s): J18.9 - Pneumonia, unspecified organism Is this a current diagnosis for this admission?: Yes Plan: Gram-positive cocci in sputum (3) Respiratory failure Qualifiers: Chronicity: acute Respiratory failure complication: hypoxia Qualified Code(s): J96.01 - Acute respiratory failure with hypoxia Is this a current diagnosis for this admission?: Yes Plan: Stable on BiPAP (4) Smoking Is this a current diagnosis for this admission?: Yes
[2017-12-14] MEDS: LEVOFLOXACIN 750 MG/D5W RTU 750 MG/150 ML RTUPB IV SCH (18:58)
[2017-12-14] MEDS: FAMOTIDINE 20 MG TABLET PO SCH (21:08)
[2017-12-15] MEDS: IPRATROPIUM/ALBUTEROL 0.5-2.5 MG/3 ML AMPUL NEB SCH ×2 (02:06→08:49)
[2017-12-15] MEDS: VANCOMYCIN HCL 1,500 MG in DEXTROSE 5%-WATER 250 ML IV SCH (05:04)
[2017-12-15] MEDS: FAMOTIDINE 20 MG TABLET PO SCH (09:37)
[2017-12-15] MEDS: METHYLPREDNISOLONE INJ 40 MG/1 ML SDV IV SCH (09:37)
[2017-12-15] MEDS: CEFEPIME 2 GM/D5W RTU 2 GM/50 ML RTUPB IV SCH (09:37)
[2017-12-15] MEDS: ENOXAPARIN SODIUM INJ 40 MG/0.4 ML DISP.SYRIN SUBCUT SCH (09:38)
[2017-12-15 11:15] VITALS: BP 104/76
--- NOTE | 2017-12-15 14:05 | PDOC DISCHARGE SUMMARY ---
General - Admit/Disc Date/PCP Admission Date/Primary Care Provider: 12/10/17 14:06 Discharge Date: 12/15/17 - Discharge Diagnosis (1) Hypertension Is this a current diagnosis for this admission?: Yes (2) Pneumonia Is this a current diagnosis for this admission?: Yes (3) Respiratory failure Is this a current diagnosis for this admission?: Yes (4) Smoking Is this a current diagnosis for this admission?: Yes - Additional Information Discharge Diet: Cardiac Discharge Activity: Activity As Tolerated Prescriptions: Amox Tr/Potassium Clavulanate [Augmentin 500-125 Tablet] 1 tab PO Q8 #15 tablet Ipratropium/Albuterol Sulfate [Combivent Respimat Inhal [place]] 4 gm IH Q6H #1 aer.w.adap Lactobacillus Acidophilus/Fos [Acidophilus Probiotic Tablet] 1 each PO BID #20 tablet Prednisone 10 mg PO ASDIR PRN #41 tab PRN Reason: Home Medications: Amox Tr/Potassium Clavulanate [Augmentin 500-125 Tablet] 1 tab PO Q8 #15 tablet 12/15/17 Ipratropium/Albuterol Sulfate [Combivent Respimat Inhal [place]] 4 gm IH Q6H #1 aer.w.adap 12/15/17 Lactobacillus Acidophilus/Fos [Acidophilus Probiotic Tablet] 1 each PO BID #20 tablet 12/15/17 Prednisone 10 mg PO ASDIR PRN #41 tab 12/15/17 History of Present Illness History of Present Illness: SUKUMAR PAZ is a 52 year old male JUSTUS PAZ is a 52 year old male who is currently intubated and sedated in the emergency room and no family at the bedside. All the history was obtained from the medical records and the ER personnel. Apparently he came here on the bus to visit family. He is from [place]. Apparently he developed shortness of breath and came to the emergency room for evaluation. The history that I know of and has history of smoking as he had a cigarette box on him and history of hypertension documented emergency room physician note. Hospital Course Hospital Course: The patient was initially admitted to the ICU on mechanical ventilation for his acute respiratory failure. Dr Marcum was consulted and managed his ventilator. The patient was started on IV antibiotics, steroids, and nebulizer treatments. He was extubated on 12/12/2017. He was then placed on BIPAP and removed intermittently only. His respiratory status has gradually improved to allow him remain off of BIPAP. He is currently saturating in the mid 90's on room air. He will be discharged to home on PO antibiotics, a steroid taper, and bronchocdilators. I have provided 7-10 minutes of tobacco cessation counseling. Physical Exam Vital Signs: Temp Pulse Resp BP Pulse Ox 97.7 F 70 16 104/76 100 12/15/17 11:14 12/15/17 11:14 12/15/17 11:14 12/15/17 11:14 12/15/17 11:14 Intake & Output 12/14/17 12/15/17 12/16/17 06:59 06:59 06:59 Intake Total 3258 3463 300 Output Total 3650 900 Balance -392 2563 300 Weight 77.9 kg General appearance: PRESENT: no acute distress, well-developed, well-nourished Respiratory exam: PRESENT: other - No increased work of breathing. No wheezes, rales, or rhonchi. No tactile fremitus. Cardiovascular exam: PRESENT: RRR. ABSENT: gallop, rubs, systolic murmur Pulses: PRESENT: normal dorsalis pedis pul GI/Abdominal exam: PRESENT: hernia, normal bowel sounds, soft. ABSENT: mass, organolmegaly, tenderness Rectal exam: PRESENT: deferred Extremities exam: ABSENT: clubbing, pedal edema, tenderness Musculoskeletal exam: PRESENT: ambulatory, normal inspection. ABSENT: dislocation, tenderness Neurological exam: PRESENT: alert, awake, oriented to person, oriented to place , oriented to time, oriented to situation, CN II-XII grossly intact, motor sensory deficit Psychiatric exam: PRESENT: appropriate affect, normal mood Skin exam: PRESENT: dry, intact, warm Results Laboratory Results: 12/14/17 06:15 12/14/17 06:15 Impressions: Chest/Abdomen CTA 12/10/17 11:31 IMPRESSION: 1.There are diffuse bilateral pulmonary airspace infiltrates and perihilar regions. Small effusions bilaterally. The findings can be seen with pulmonary edema, pneumonia, ARDS. Findings consistent with soft tissue anasarca. 2. Cortical cysts of the kidneys . Chest X-Ray 12/14/17 06:00 IMPRESSION: Further clearing of dense airspace disease in the right lung compatible with resolving pneumonia or pneumonitis. Stable cardiomegaly Qualifiers - * PATIENT BEING DISCHARGED WITH ANY OF THE FOLLOWING DIAGNOSIS: No Plan Discharge Plan: Discharge to home. Time Spent: Greater than 30 Minutes
== END 2017-12-15 11:27 | disposition home or self-care (01) | DRG 208 ==
LOC: ER 11:05 → EH 14:06 → ICU 15:30 → 2N 12-14 03:10
PROVIDERS: ADMIT Family Medicine; ATTEND Family Medicine
PROC: 5A1945Z Respiratory Ventilation, 24-96 Consecutive Hours (ICD-10-PCS; principal; 2017-12-10)
PROC: 0BH17EZ Insertion of Endotracheal Airway into Trachea, Via Natural or Artificial Opening (ICD-10-PCS; 2017-12-10)
PROC: 3E0F73Z Introduction of Anti-inflammatory into Respiratory Tract, Via Natural or Artificial Opening (ICD-10-PCS; 2017-12-10)
PROC: 5A09357 Assistance with Respiratory Ventilation, Less than 24 Consecutive Hours, Continuous Positive Airway Pressure (ICD-10-PCS; 2017-12-10)
DX: J18.9 Pneumonia, unspecified organism (principal); J96.01 Acute respiratory failure with hypoxia; J44.1 Chronic obstructive pulmonary disease with (acute) exacerbation; J44.0 Chronic obstructive pulmonary disease with (acute) lower respiratory infection; Q61.02 Congenital multiple renal cysts; I10 Essential (primary) hypertension; F17.210 Nicotine dependence, cigarettes, uncomplicated; B95.61 Methicillin susceptible Staphylococcus aureus infection as the cause of diseases classified elsewhere; Z78.1 Physical restraint status; Z88.6 Allergy status to analgesic agent
CPT/HCPCS: 36415; 36600; 51702; 71045; 71275; 80048; 80053; 80202; 80307; 82803; 83605; 83735; 84100; 84478; 84484; 85025; 85610; 85730; 87040; 87070; 87077; 87186; 87205; 93005; 93010; 93306; 94002; 94003; 94640; 94660; 94667; 94668; 94799; 96365; 96367; 96368; 96375; 99291; J0456; J0692; J1650; J1956; J2250; J2704; J2920; J2930; J3370; J3490; J7030; J7060; J7120; J7620; S0028

== ENCOUNTER 2018-01-06 06:52 | Inpatient (IN) | payer SELFPAY ==
[2018-01-06] MEDS ORDERED: FUROSEMIDE INJ/PF 40 MG/4 ML SDV IV ONE (08:24)
[2018-01-06 08:38] LABS: HEMATOCRIT 31.5 % (37.9-51.0); HEMOGLOBIN 9.6 g/dL (13.5-17.0); MEAN CORPUSCULAR HEMOGLOBIN 21.5 pg (27.0-33.4); MEAN CORPUSCULAR HGB CONC 30.5 g/dL (32.0-36.0); MEAN CORPUSCULAR VOLUME 71 fl (80-97); PLATELET COUNT 270 10^3/uL (150-450); RED BLOOD COUNT 4.46 10^6/uL (4.35-5.55); RED CELL DISTRIBUTION WIDTH 17.1 % (11.5-14.0); WHITE BLOOD COUNT 11.3 10^3/uL (4.0-10.5)
[2018-01-06 08:43] LABS: ALANINE AMINOTRANSFERASE 54 U/L (21-72); ALBUMIN 3.3 g/dL (3.5-5.0); ALKALINE PHOSPHATASE 205 U/L (38-126); ANION GAP 10 (5-19); ASPARTATE AMINO TRANSFERASE 50 U/L (17-59); BILIRUBIN,DIRECT 0.4 mg/dL (0.0-0.4); BILIRUBIN,TOTAL 0.5 mg/dL (0.2-1.3); BLOOD UREA NITROGEN 18 mg/dL (7-20); CALCIUM 8.7 mg/dL (8.4-10.2); CARBON DIOXIDE 26 mmol/L (22-30); CHLORIDE 107 mmol/L (98-107); GLUCOSE 104 mg/dL (75-110); SODIUM 142.8 mmol/L (137-145); TOTAL PROTEIN 6.7 g/dL (6.3-8.2)
[2018-01-06 08:55] LABS: CREATINE KINASE MB 2.6 ng/mL (<4.55)
[2018-01-06 08:59] LABS: ABSOLUTE LYMPHOCYTES# (MANUAL) 2.8 10^3/uL (0.5-4.7); ABSOLUTE MONOCYTES # (MANUAL) 0.7 10^3/uL (0.1-1.4); ABSOLUTE NEUTROPHILS# (MANUAL) 7.7 10^3/uL (1.7-8.2); BASOPHILS % (MANUAL) 0 % (0-2); EOSINOPHILS % (MANUAL) 1 % (0-6); LYMPHOCYTES % (MANUAL) 25 % (13-45); MONOCYTES % (MANUAL) 6 % (3-13); SEGMENTED NEUTROPHILS % (MAN) 68 % (42-78); TOTAL CELLS COUNTED 100
[2018-01-06 09:01] LABS: POLYCHROMASIA SLIGHT
[2018-01-06 09:02] LABS: ANISOCYTOSIS 1+; HYPOCHROMASIA 1+; OVALOCYTES 1+; PLATELET COMMENT ADEQUATE; POIKILOCYTOSIS 2+; SCHISTOCYTES SLIGHT; TARGET CELLS 1+
[2018-01-06 09:06] LABS: TROPONIN I 0.047 ng/mL
--- NOTE | 2018-01-06 09:13 | RADIOLOGY REPORT (SQ) ---
EXAM DESCRIPTION: CHEST 2 VIEWS COMPLETED DATE/TIME: 01/06/2018 9:00 am REASON FOR STUDY: short of breath COMPARISON: 12/14/2017. Earlier December radiographs and CT studies. TECHNIQUE: Frontal and lateral radiographic views of the chest acquired. NUMBER OF VIEWS: Two view. LIMITATIONS: None. FINDINGS: LUNGS AND PLEURA: Extensive airspace infiltrates have once again developed throughout the right lung. Similar appearance to pattern observed and early December (which had subsequently cleared) . Minimal patchy left airspace disease as well. No large effusions. MEDIASTINUM AND HILAR STRUCTURES: No masses or contour abnormalities. HEART AND VASCULAR STRUCTURES: Cardiac enlargement is suggested on today's study. BONES: No acute findings. HARDWARE: None in the chest. OTHER: No other significant finding. IMPRESSION: 1. Extensive asymmetric edema or pneumonia in the right lung particularly. Pattern sim ilar to that seen in early December. These opacities had essentially cleared by 12/14/2017, but are now recurrent. TECHNICAL DOCUMENTATION: JOB ID: [id number] [employer]- All Rights Reserved Reading location - IP/workstation name: [email or web address]
--- NOTE | 2018-01-06 09:19 | ER Document Report ---
ED Respiratory Problem - General Chief Complaint: Shortness Of Breath Stated Complaint: SHORTNESS OF BREATH Time Seen by Provider: 01/06/18 07:51 TRAVEL OUTSIDE OF THE [place] IN LAST 30 DAYS: No - HPI Patient complains to provider of: Other - This 52-year-old man presented for evaluation of shortness of breath including productive cough with sputum over the last several days, he notes that exertion makes his shortness of breath much worse and that it is been seeming to get worse ever since he left the hospital in early December at which time he was admitted for pneumonia. He notes that he has been off of medications for a long period of time because he has lost access to medicines. Resting seems to make his shortness of breath better, exertion makes it worse. He denies any chest pain. He denies any other obvious symptoms. He has had something similar to this in the past which was attributed to pneumonia. He denies any known history of heart failure but does have a known history of hypertension as well as hyperlipidemia. - Related Data Allergies/Adverse Reactions: meperidine [From Demerol] Allergy (Verified 12/10/17 11:06) morphine Allergy (Verified 12/10/17 11:06) Past Medical History - General Information source: Patient - Social History Smoking Status: Current Every Day Smoker Family History: Other - could not obtained - Past Medical History Cardiac Medical History: Reports: Hx Hypertension Pulmonary Medical History: Reports: Hx Pneumonia Renal/ Medical History: Denies: Hx Peritoneal Dialysis Past Surgical History: Reports: Hx Abdominal Surgery - Hernia Repair, Hx Herniorrhaphy Review of Systems - Review of Systems -: Yes All other systems reviewed and negative Physical Exam - Vital signs Vitals: Temp Pulse Resp BP Pulse Ox 97.6 F 94 30 H 141/104 H 96 01/06/18 06:57 01/06/18 06:57 01/06/18 06:57 01/06/18 06:57 01/06/18 06:57 - General General appearance: Appears well In distress: Mild - HEENT Head: Normocephalic Eyes: Normal Conjunctiva: Normal Cornea: Normal Extraocular movements intact: Yes Eyelashes: Normal Pupils: PERRL - Respiratory Respiratory status: Tachypnea, Tripod position Chest status: Nontender Breath sounds: Rales, Rhonchi Chest palpation: Normal - Cardiovascular Rhythm: Tachycardia Heart sounds: Normal auscultation Murmur: No - Abdominal Inspection: Normal Distension: No distension Tenderness: Nontender Organomegaly: No organomegaly - Back Back: Normal - Extremities General upper extremity: Normal inspection General lower extremity: Other - +2 pitting edema in the lower extremities - Neurological Neuro grossly intact: Yes Cognition: Normal Orientation: AAOx4 [place] Coma Scale Eye Opening: Spontaneous [place] Coma Scale Verbal: Oriented [place] Coma Scale Motor: Obeys Commands [place] Coma Scale Total: 15 - Psychological Associated symptoms: Normal affect Course - Re-evaluation Re-evalutation: 01/06/18 16:52 This 52-year-old man presents for evaluation of productive cough as well as exertional dyspnea in the setting of a previously diagnosed pneumonia, he does not have any known heart failure but has untreated hypertension times the last month. On examination the patient is in moderate distress, he is breathing approximately 30-35 times per minute, he is able to speak in short 2 word responses. He does demonstrate hypoxia without oxygen, he does not normally wear oxygen at baseline. He does have an element of probable heart failure given that his lower extremities demonstrate edema and is got crackles in the inferior lung [place]. We will initiate treatment presumptively for heart failure emergency department including Lasix IV and administration of oxygen, will obtain x-ray EKG troponin as well as other labs. Patient began to diurese after administration of Lasix IV, he does demonstrate a modest leukocytosis. His BNP is elevated to 6000, he does look like what has a recurrent infiltrate in the right upper lung field. Given that this likely represents a pneumonia in addition to what was probably an underlying element of heart failure we will plan for the administration of antibiotics presumptively covering for H. Have spoken with the hospitalist about this patient believe he will likely require stepdown level of care. His oxygen need at this time is approximately 4 L/min. He is received IV antibiotics for his pneumonia as well as IV Lasix for his element of heart failure. Has obtained blood cultures as well as a troponin which is in the low range. His EKG demonstrates sinus tachycardia with LVH but no appreciable acute changes. Deferred intubation of this patient as well as administration of BiPAP as his work of breathing greatly improved as long as he was not talking after he began to urinate. - Vital Signs Vital signs: Temp Pulse Resp BP Pulse Ox 98.3 F 98 22 H 132/77 H 100 01/06/18 14:57 01/06/18 15:23 01/06/18 14:57 01/06/18 14:57 01/06/18 14:57 - Laboratory Result Diagrams: 01/06/18 07:50 01/06/18 07:50 Laboratory results interpreted by me: 01/06/18 01/06/18 01/06/18 07:50 07:50 07:50 WBC 11.3 H Hgb 9.6 L Hct 31.5 L MCV 71 L MCH 21.5 L MCHC 30.5 L RDW 17.1 H Alkaline Phosphatase 205 H NT-Pro-B Natriuret Pep 6160 H Albumin 3.3 L Critical Care Note - Critical Care Note Total time excluding time spent on procedures (mins): 35 Discharge - Discharge Clinical Impression: HCAP (healthcare-associated pneumonia), Acute on chronic systolic heart failure Condition: Serious Disposition: ADMITTED INPATIENT Admitting Provider: Hospitalist Unit Admitted: [facility]
[2018-01-06] MEDS ORDERED: AZITHROMYCIN INJ 500 MG VIAL IV ONE (09:56)
[2018-01-06] MEDS ORDERED: PIPERACILLIN/TAZOBACTAM 3.375 GM VIAL IV ONE (09:56)
[2018-01-06] MEDS ORDERED: VANCOMYCIN HCL INJ 1000 MG VIAL IV ONE (09:57)
[2018-01-06 10:55] LABS: VENOUS BLOOD BASE EXCESS -0.7 mmol/L; VENOUS BLOOD HCO3 25.4 mmol/L (20-32); VENOUS BLOOD PCO2 47.7 mmHg (35-63); VENOUS BLOOD PH 7.34 (7.30-7.42)
[2018-01-06] MEDS ORDERED: NITROGLYCERIN 10 MG (0.4 MG/HR) PATCH.TD24 TD ONE (11:24)
[2018-01-06] MEDS ORDERED: IPRATROPIUM/ALBUTEROL 0.5-2.5 MG/3 ML AMPUL NEB PRN (11:53)
--- NOTE | 2018-01-06 12:52 | PDOC H&P ---
History of Present Illness Admission Date/PCP: 01/06/18 11:53 Patient complains of: Shortness of breath and cough History of Present Illness: SUKUMAR PAZ is a 52 year old male with past medical history of hypertension, CHF with EF of 35%, who was recently hospitalizedgout last month with respiratory failure and pneumonia and was intubated. Patient was discharged home on p.o. antibiotic. Patient now reports that for past 4 days he has been having progressive worsening of shortness of breath with orthopnea and nonproductive cough followed by productive cough with pink frothy sputum. Patient also had a subjective fever yesterday. Patient reports his leg swelling is not got any worse. Patient is currently not taking any medications. Patient denies chest pain or abdominal pain or nausea vomiting or diarrhea. No recent sick contacts or travel. On arrival to emergency room patient was in severe respiratory distress with respiratory rate of 35 with oxygen saturation in the low 80s. Patient was tachycardic but afebrile. EKG shows sinus rhythm with nonspecific ST changes. Chest x-ray shows right-sided infiltrate and cardiomegaly. BNP is 6160. His troponin is negative. White count is 11,000. Patient was given broad-spectrum antibiotic and IV Lasix. Patient was referred to hospital service for admission. Past Medical History Cardiac Medical History: Reports: Congestive Heart Failure, Hypertension Pulmonary Medical History: Reports: Pneumonia Musculoskeltal Medical History: Reports: Gout Past Surgical History Past Surgical History: Reports: Herniorrhaphy Social History Smoking Status: Former Smoker Frequency of Alcohol Use: Occasional Drugs: Cocaine - Advance Directive Resuscitation Status: Full Code Family History Family History: Other - could not obtained. denies: CAD, COPD Parental Family History Reviewed: No Children Family History Reviewed: No Sibling(s) Family History Reviewed.: No Medication/Allergy Home Medications: No Home Medications 01/06/18 Allergies/Adverse Reactions: meperidine [From Demerol] Allergy (Verified 12/10/17 11:06) morphine Allergy (Verified 12/10/17 11:06) Review of Systems All systems: reviewed and no additional remarkable complaints except as stated Physical Exam Vital Signs: Temp Pulse Resp BP Pulse Ox 97.6 F 102 H 27 H 126/90 H 97 01/06/18 06:57 01/06/18 11:00 01/06/18 12:01 01/06/18 12:01 01/06/18 12:01 General appearance: PRESENT: cooperative, mild distress Head exam: PRESENT: atraumatic, normocephalic Eye exam: PRESENT: EOMI, PERRLA Mouth exam: PRESENT: moist Neck exam: PRESENT: JVD. ABSENT: carotid bruit Respiratory exam: PRESENT: crackles, decreased breath sounds Cardiovascular exam: PRESENT: RRR, +S1, +S2. ABSENT: rubs, systolic murmur GI/Abdominal exam: PRESENT: normal bowel sounds, soft. ABSENT: tenderness Extremities exam: PRESENT: +2 edema Musculoskeletal exam: PRESENT: full ROM Neurological exam: PRESENT: alert, awake, oriented to person, oriented to place , oriented to time, oriented to situation, CN II-XII grossly intact. ABSENT: motor sensory deficit Psychiatric exam: PRESENT: appropriate affect, normal mood. ABSENT: homicidal ideation, suicidal ideation Skin exam: PRESENT: dry, intact, warm. ABSENT: cyanosis, rash Results Laboratory Results: All lab reviewed. Impressions: Chest X-Ray 01/06/18 08:22 IMPRESSION: 1. Extensive asymmetric edema or pneumonia in the right lung particularly. Pattern similar to that seen in early December. These opacities had essentially cleared by 12/14/2017, but are now recurrent. Assessment & Plan - Diagnosis (1) Acute respiratory failure with hypoxia Plan: Patient presented with a severe respiratory distress and hypoxia without hypercapnia. Patient has a combination of CHF as well as pneumonia. Patient with prior history of pneumonia last month which required intubation and mechanical ventilation; however currently after IV Lasix and antibiotic patient' s symptoms has improved will admit patient to IMCU. We will continue IV diuretics as well as bronchodilators and oxygen. (2) Acute on chronic systolic heart failure Plan: Patient with most recent echocardiogram last month showed EF of 35%; patient will be started on IV diuretics as well as beta janina. Strict input and output and daily weight measurement. (3) Pneumonia Qualifiers: Pneumonia type: due to unspecified organism Laterality: right Lung location: upper lobe of lung Qualified Code(s): J18.1 - Lobar pneumonia, unspecified organism Is this a current diagnosis for this admission?: Yes Plan: Patient with recent hospitalization so we will treat as a hospital acquired pneumonia. Will start patient on vancomycin along with cefepime and Zithromax. Will follow blood culture. Patient is hemodynamically stable and does not appear septic. (4) Hypertension Qualifiers: Hypertension type: essential hypertension Qualified Code(s): I10 - Essential (primary) hypertension Plan: Blood pressure stable. Will resume current home medication. - Time Time Spent: 50 to 70 Minutes - Inpatient Certification Based on my medical assessment, after consideration of the patient's comorbidities, presenting symptoms, or acuity I expect that the services needed warrant INPATIENT care.: Yes I certify that my determination is in accordance with my understanding of Medicare's requirements for reasonable and necessary INPATIENT services [42 CFR 412.3e].: Yes Medical Necessity: Need For Continuous Telemetry Monitoring, Need for IV Antibiotics
--- NOTE | 2018-01-06 12:58 | EKG REPORT ---
SEVERITY:- ABNORMAL ECG - SINUS RHYTHM PROBABLE LEFT VENTRICULAR HYPERTROPHY : Confirmed by: Davey Lopez MD 06-Jan-2018 12:57:42
[2018-01-06] MEDS ORDERED: AZITHROMYCIN 500 MG in DEXTROSE 5%-WATER 250 ML IV ONE (13:00)
[2018-01-06] MEDS: VANCOMYCIN HCL 1,250 MG in DEXTROSE 5%-WATER 250 ML IV SCH ×2 (15:40→23:16)
[2018-01-06] MEDS: ACETAMINOPHEN 325 MG TABLET PO PRN ×2 (16:16→23:16)
[2018-01-06] MEDS: IPRATROPIUM/ALBUTEROL 0.5-2.5 MG/3 ML AMPUL NEB SCH ×2 (16:24→20:26)
[2018-01-06] MEDS ORDERED: VANCOMYCIN HCL INJ 1000 MG VIAL IV SCH (22:00)
[2018-01-06] MEDS ORDERED: CEFEPIME 2 GM/D5W RTU 2 GM/50 ML RTUPB IV ONE (23:12)
[2018-01-06] MEDS: CEFEPIME 2 GM/D5W RTU 2 GM/50 ML RTUPB IV SCH (23:17)
[2018-01-06] MEDS: GUAIFENESIN 600 MG TABLET.SA PO SCH (23:18)
[2018-01-06] MEDS: FUROSEMIDE INJ/PF 40 MG/4 ML SDV IV SCH (23:19)
[2018-01-07 04:53] LABS: HEMATOCRIT 30.7 % (37.9-51.0); HEMOGLOBIN 9.5 g/dL (13.5-17.0); MEAN CORPUSCULAR HEMOGLOBIN 21.7 pg (27.0-33.4); MEAN CORPUSCULAR VOLUME 70 fl (80-97); PLATELET COUNT 265 10^3/uL (150-450); RED BLOOD COUNT 4.39 10^6/uL (4.35-5.55); RED CELL DISTRIBUTION WIDTH 16.7 % (11.5-14.0); WHITE BLOOD COUNT 13.8 10^3/uL (4.0-10.5)
[2018-01-07 05:31] LABS: ALANINE AMINOTRANSFERASE 51 U/L (21-72); ALBUMIN 2.7 g/dL (3.5-5.0); ALKALINE PHOSPHATASE 176 U/L (38-126); ANION GAP 9 (5-19); ASPARTATE AMINO TRANSFERASE 32 U/L (17-59); BILIRUBIN,DIRECT 0.4 mg/dL (0.0-0.4); BILIRUBIN,TOTAL 0.9 mg/dL (0.2-1.3); BLOOD UREA NITROGEN 12 mg/dL (7-20); CALCIUM 8.8 mg/dL (8.4-10.2); CARBON DIOXIDE 27 mmol/L (22-30); CHLORIDE 105 mmol/L (98-107); GLUCOSE 92 mg/dL (75-110); POTASSIUM 3.5 mmol/L (3.6-5.0); SODIUM 141.4 mmol/L (137-145); TOTAL PROTEIN 5.7 g/dL (6.3-8.2)
[2018-01-07] MEDS: VANCOMYCIN HCL 1,250 MG in DEXTROSE 5%-WATER 250 ML IV SCH ×3 (06:53→17:38)
[2018-01-07] MEDS: IPRATROPIUM/ALBUTEROL 0.5-2.5 MG/3 ML AMPUL NEB SCH ×3 (08:07→19:57)
[2018-01-07] MEDS ORDERED: POTASSIUM CHLORIDE 20 MEQ/15 ML UDCUP PO ONE (08:30)
[2018-01-07] MEDS: ENOXAPARIN SODIUM INJ 40 MG/0.4 ML DISP.SYRIN SUBCUT SCH (09:02)
[2018-01-07] MEDS: AZITHROMYCIN 500 MG in DEXTROSE 5%-WATER 250 ML IV SCH (09:03)
[2018-01-07] MEDS: CEFEPIME 2 GM/D5W RTU 2 GM/50 ML RTUPB IV SCH ×2 (09:03→21:23)
[2018-01-07] MEDS: GUAIFENESIN 600 MG TABLET.SA PO SCH ×2 (09:03→21:22)
[2018-01-07] MEDS: FUROSEMIDE INJ/PF 40 MG/4 ML SDV IV SCH ×2 (09:18→21:22)
--- NOTE | 2018-01-07 09:46 | PDOC PROGRESS REPORT ---
Subjective Progress Note for:: 01/07/18 Subjective:: Patient reports improving shortness of breath. Patient denies chest pain. Patient was afebrile. Reason For Visit: PNEUMONIA/CHF Physical Exam Vital Signs: Temp Pulse Resp BP Pulse Ox 97.6 F 87 18 130/84 H 97 01/07/18 07:24 01/07/18 08:07 01/07/18 08:07 01/07/18 07:24 01/07/18 08:07 Intake & Output 01/06/18 01/07/18 01/08/18 06:59 06:59 06:59 Intake Total 1458 250 Output Total 5600 Balance -4142 250 Weight 175 lb 7.807 oz General appearance: PRESENT: no acute distress, cooperative Head exam: PRESENT: atraumatic, normocephalic Eye exam: PRESENT: EOMI, PERRLA Mouth exam: PRESENT: moist Respiratory exam: PRESENT: crackles, decreased breath sounds Cardiovascular exam: PRESENT: RRR, rubs, +S2. ABSENT: systolic murmur Vascular exam: PRESENT: normal capillary refill GI/Abdominal exam: PRESENT: normal bowel sounds, soft. ABSENT: tenderness Gentrourinary exam: ABSENT: ecchymosis, erythema, lacerations, lesions, scrotal swelling, testicular tenderness, urethral discharge, indwelling catheter, other Neurological exam: PRESENT: alert, awake, oriented to person, oriented to place , oriented to time, oriented to situation, CN II-XII grossly intact. ABSENT: motor sensory deficit Psychiatric exam: PRESENT: appropriate affect, normal mood. ABSENT: homicidal ideation, suicidal ideation Skin exam: PRESENT: dry, intact, warm. ABSENT: cyanosis, rash Results Laboratory Results: 01/07/18 04:25 01/07/18 04:25 01/07/18 01/07/18 04:25 04:25 WBC 13.8 H RBC 4.39 Hgb 9.5 L Hct 30.7 L MCV 70 L MCH 21.7 L MCHC 31.0 L RDW 16.7 H Plt Count 265 Sodium 141.4 Potassium 3.5 L Chloride 105 Carbon Dioxide 27 Anion Gap 9 BUN 12 Creatinine 0.58 Est GFR ( Amer) > 60 Est GFR (Non-Af Amer) > 60 Glucose 92 Calcium 8.8 Total Bilirubin 0.9 AST 32 ALT 51 Alkaline Phosphatase 176 H Total Protein 5.7 L Albumin 2.7 L Impressions: Chest X-Ray 01/06/18 08:22 IMPRESSION: 1. Extensive asymmetric edema or pneumonia in the right lung particularly. Pattern similar to that seen in early December. These opacities had essentially cleared by 12/14/2017, but are now recurrent. Assessment & Plan - Diagnosis (1) Acute respiratory failure with hypoxia Is this a current diagnosis for this admission?: Yes Plan: Patient has been weaned from 4 L to 1 L nasal cannula. We will continue bronchodilator. Continue antibiotic and diuretics. (2) Acute on chronic systolic heart failure Is this a current diagnosis for this admission?: Yes Plan: Continue Lasix with beta-janina and nitroglycerin. (3) Pneumonia Qualifiers: Pneumonia type: due to unspecified organism Laterality: right Lung location: upper lobe of lung Qualified Code(s): J18.1 - Lobar pneumonia, unspecified organism Is this a current diagnosis for this admission?: Yes Plan: Continue IV antibiotic and follow blood culture. (4) Hypertension Qualifiers: Hypertension type: essential hypertension Qualified Code(s): I10 - Essential (primary) hypertension Is this a current diagnosis for this admission?: No Plan: Blood pressure stable. Will resume current home medication. - Time Time Spent with patient: 15-24 minutes Medications reviewed and adjusted accordingly: Yes Anticipated discharge: Home Within: within 24 hours - Inpatient Certification Based on my medical assessment, after consideration of the patient's comorbidities, presenting symptoms, or acuity I expect that the services needed warrant INPATIENT care.: Yes I certify that my determination is in accordance with my understanding of Medicare's requirements for reasonable and necessary INPATIENT services [42 CFR 412.3e].: Yes Medical Necessity: Need For Continuous Telemetry Monitoring, Need for IV Antibiotics
[2018-01-07] MEDS: ACETAMINOPHEN 325 MG TABLET PO PRN ×2 (10:23→23:11)
[2018-01-07 14:23] LABS: VANCOMYCIN,TROUGH 9.9 ug/mL (5.0-20.0)
[2018-01-08] MEDS: VANCOMYCIN HCL 1,250 MG in DEXTROSE 5%-WATER 250 ML IV SCH ×3 (03:31→12:09)
[2018-01-08] MEDS: IPRATROPIUM/ALBUTEROL 0.5-2.5 MG/3 ML AMPUL NEB SCH (08:03)
[2018-01-08] MEDS ORDERED: CARVEDILOL 3.125 MG TABLET PO SCH (10:00)
[2018-01-08] MEDS ORDERED: LISINOPRIL 5 MG TABLET PO SCH (10:00)
[2018-01-08] MEDS: CEFEPIME 2 GM/D5W RTU 2 GM/50 ML RTUPB IV SCH (10:32)
[2018-01-08] MEDS: ENOXAPARIN SODIUM INJ 40 MG/0.4 ML DISP.SYRIN SUBCUT SCH (10:43)
[2018-01-08] MEDS: GUAIFENESIN 600 MG TABLET.SA PO SCH (10:43)
[2018-01-08] MEDS: FUROSEMIDE INJ/PF 40 MG/4 ML SDV IV SCH (10:44)
[2018-01-08] MEDS: AZITHROMYCIN 500 MG in DEXTROSE 5%-WATER 250 ML IV SCH (11:30)
--- NOTE | 2018-01-08 11:39 | PDOC DISCHARGE SUMMARY ---
General - Admit/Disc Date/PCP Admission Date/Primary Care Provider: 01/06/18 11:53 Discharge Date: 01/08/18 - Discharge Diagnosis (1) Acute respiratory failure with hypoxia Is this a current diagnosis for this admission?: Yes (2) Acute on chronic systolic heart failure Is this a current diagnosis for this admission?: Yes (3) Pneumonia Is this a current diagnosis for this admission?: Yes (4) Hypertension Is this a current diagnosis for this admission?: No - Additional Information Resuscitation Status: Full Code Discharge Diet: As Tolerated Discharge Activity: Activity As Tolerated Prescriptions: Amox Tr/Potassium Clavulanate [Augmentin 875-125 mg Tablet] 1 tab PO BID #20 tablet Azithromycin 500 mg PO DAILY #5 tablet Carvedilol [Coreg 3.125 mg Tablet] 3.125 mg PO Q12 #60 tablet Furosemide [Lasix 20 mg Tablet] 20 mg PO QAM #30 tablet Lisinopril [Prinivil 5 mg Tablet] 5 mg PO DAILY #30 tablet Home Medications: Amox Tr/Potassium Clavulanate [Augmentin 875-125 mg Tablet] 1 tab PO BID #20 tablet 01/08/18 Azithromycin 500 mg PO DAILY #5 tablet 01/08/18 Carvedilol [Coreg 3.125 mg Tablet] 3.125 mg PO Q12 #60 tablet 01/08/18 Furosemide [Lasix 20 mg Tablet] 20 mg PO QAM #30 tablet 01/08/18 Lisinopril [Prinivil 5 mg Tablet] 5 mg PO DAILY #30 tablet 01/08/18 History of Present Illness Patient complains of: sob;cough History of Present Illness: SUKUMAR PAZ is a 52 year old male with past medical history of hypertension, CHF with EF of 35%, who was recently hospitalizedgout last month with respiratory failure and pneumonia and was intubated. Patient was discharged home on p.o. antibiotic. Patient now reports that for past 4 days he has been having progressive worsening of shortness of breath with orthopnea and nonproductive cough followed by productive cough with pink frothy sputum. Patient also had a subjective fever yesterday. Patient reports his leg swelling is not got any worse. Patient is currently not taking any medications. Patient denies chest pain or abdominal pain or nausea vomiting or diarrhea. No recent sick contacts or travel. On arrival to emergency room patient was in severe respiratory distress with respiratory rate of 35 with oxygen saturation in the low 80s. Patient was tachycardic but afebrile. EKG shows sinus rhythm with nonspecific ST changes. Chest x-ray shows right-sided infiltrate and cardiomegaly. BNP is 6160. His troponin is negative. White count is 11,000. Patient was given broad-spectrum antibiotic and IV Lasix. Patient was referred to hospital service for admission. Hospital Course Hospital Course: Patient was continued on IV Lasix as well as IV antibiotic. Patient was gradually weaned off oxygen. Patient was started on Coreg as well as lisinopril for heart failure. His most recent echocardiogram shows EF of 35%. Patient is doing very well and has lost 20 pounds weight. She will be discharged home with p.o. Augmentin as well as azithromycin and Lasix and beta- janina. Physical Exam Vital Signs: Temp Pulse Resp BP Pulse Ox 98.0 F 74 16 128/95 H 93 01/08/18 07:54 01/08/18 08:03 01/08/18 08:03 01/08/18 07:54 01/08/18 08:03 Intake & Output 01/07/18 01/08/18 01/09/18 06:59 06:59 06:59 Intake Total 1458 3201 Output Total 5600 4850 Balance -4142 -1649 Weight 175 lb 7.807 oz 172 lb 9.951 oz General appearance: PRESENT: no acute distress, cooperative Head exam: PRESENT: atraumatic, normocephalic Eye exam: PRESENT: EOMI, PERRLA Mouth exam: PRESENT: moist Neck exam: ABSENT: carotid bruit, JVD, lymphadenopathy, thyromegaly Respiratory exam: PRESENT: clear to auscultation lori. ABSENT: rales, rhonchi, wheezes Cardiovascular exam: PRESENT: RRR. ABSENT: diastolic murmur, rubs, systolic murmur GI/Abdominal exam: PRESENT: normal bowel sounds, soft. ABSENT: distended, guarding, mass, organolmegaly, rebound, tenderness Neurological exam: PRESENT: alert, awake, oriented to person, oriented to place , oriented to time, oriented to situation, CN II-XII grossly intact. ABSENT: motor sensory deficit Results Laboratory Results: 01/07/18 04:25 01/07/18 13:42 01/07/18 13:42 Creatinine 0.65 Est GFR ( Amer) > 60 Est GFR (Non-Af Amer) > 60 Impressions: Chest X-Ray 01/06/18 08:22 IMPRESSION: 1. Extensive asymmetric edema or pneumonia in the right lung particularly. Pattern similar to that seen in early December. These opacities had essentially cleared by 12/14/2017, but are now recurrent. Qualifiers - * PATIENT BEING DISCHARGED WITH ANY OF THE FOLLOWING DIAGNOSIS: Heart Failure HF Pt being discharged on ACEI for LVEF less than 40%?: Yes HF Pt being discharged on ARBS for LVEF less than 40%?: No Reason(s) for not prescribing ARBS:: Not indicated HF Pt with Afib discharged with Warfarin?: No Reason(s) for not prescribing Warfarin:: Not indicated HF Pt discharged on evidence-based Beta Janina:: Yes
[2018-01-08 12:51] VITALS: BP 132/77
== END 2018-01-08 13:35 | disposition home or self-care (01) | DRG 291 ==
LOC: ER 06:52 → EH 11:53 → 3W 14:52
PROVIDERS: ADMIT Internal Medicine; ATTEND Internal Medicine
DX: I11.0 Hypertensive heart disease with heart failure (principal); J18.9 Pneumonia, unspecified organism; J96.01 Acute respiratory failure with hypoxia; I50.23 Acute on chronic systolic (congestive) heart failure; M10.9 Gout, unspecified; Z87.891 Personal history of nicotine dependence; Z88.8 Allergy status to other drugs, medicaments and biological substances; Z88.6 Allergy status to analgesic agent
CPT/HCPCS: 36415; 71046; 80053; 80202; 82553; 82565; 82803; 83880; 84484; 85025; 85027; 87040; 93005; 93010; J0456; J0692; J1650; J1940; J2543; J3370; J3490; J7060; J7620